=== PATIENT | female | born 1950 | race Caucasian/White ===

== ENCOUNTER 2020-07-18 17:27 | Inpatient (IN) | payer MEDICARE, BC ==
[~2020-07-18] VITALS: Ht 162.6 cm; Wt 96.2 kg
[~2020-07-18 17:27] MED LIST: adenosine 3mg/ml 2ml vial IV ONE; amiodarone 50MG/ML inj IV ONE; atropine 0.1 mg/ml 5ml syringe ONE; epiNEPHrine 0.1mg/ml 10ml syringe ONE; etomidate 2mg/ml inj. ONE; rocuronium 10mg/ml inj IV ONE
--- NOTE | 2020-07-18 18:00 | NUR ---
Received nurse:nurse harrison Pratt Rn, [facility] @ 3034. Pt initial visit r/t respiratory distress where uti reveal and treated w/ macrobid. Pt Covid + 07/14/2020 w/ increased difficulty breathing, placed on bipap. FC in place. NS bolus, albuterol neb tx and erythromcin administered. Abnormal labs: d-dimer: 22; Na: 23; K3.3. [employer] leaving now.
[2020-07-18 18:14] LABS: CLARITY,URINE SLIGHTLY CLOUDY (Clear); COLOR,URINE STRAW (Yellow); GLUCOSE, URINE 100 mg/dl (Neg); KETONES,URINE TRACE mg/dl (Neg); LEUKOCYTE ESTERASE ,URINE NEGATIVE (Neg); NITRITES, URINE NEGATIVE (Neg); OCCULT BLOOD,URINE MODERATE (Neg); PH,URINE 6.5 (4.8-8.0); PROTEIN,URINE 100 mg/dl (Neg); UROBILINOGEN,URINE 0.2 E.U/dL (0.2-1.0)
[2020-07-18 18:19] LABS: UA COLLECTION TYPE FOLEY CATH
[2020-07-18 18:21] LABS: SQUAMOUS EPITHELIAL CELL,UR FEW /LPF (FEW); TRANSITIONAL EPI CELLS,URINE FEW /HPF
[2020-07-18 18:22] LABS: RENAL CELLS, URINE MODERATE /HPF
[2020-07-18 18:23] LABS: BACTERIA,URINE NONE SEEN /HPF (Neg); RBC,URINE 0-2 /HPF (0-2); WBC,URINE 0-4 /HPF (0-4)
[2020-07-18 18:25] LABS: AMORPHOUS URATES 2+
[2020-07-18 18:43] LABS: BASOPHILS % (AUTO) 0.2 % (0-1); EOSINOPHILS % (AUTO) 0 % (0-6); HEMOGLOBIN 11.7 g/dl (12.0-16.0); LYMPHOCYTES # (AUTO) 0.3 X10'3 (1.1-4.8); LYMPHOCYTES % (AUTO) 2.7 % (21-51); MEAN CORPUSCULAR HEMOGLOBIN 29.9 PG (27.0-31.0); MEAN CORPUSCULAR HGB CONC 34.4 g/dL (33.0-36.5); MEAN CORPUSCULAR VOLUME 86.9 FL (78-98); MEAN PLATELET VOLUME 7.9 FL (7.4-10.4); MONOCYTES # (AUTO) 0.2 X10'3 (0-0.9); MONOCYTES % (AUTO) 1.8 % (2-12); NEUTROPHILS # (AUTO) 11.5 X10'3 (1.8-7.7); NEUTROPHILS % (AUTO) 95.3 % (42-75); PLATELET COUNT 293 X10'3 (140-440); RED BLOOD COUNT 3.91 X10'6 (4.20-5.60); RED CELL DISTRIBUTION WIDTH 13.3 % (11.5-14.5)
[2020-07-18] MEDS ORDERED: iohexol 350MG/ML 100ml bottle IV ONE (18:55)
[2020-07-18 18:56] LABS: ABG BASE EXCESS -0.2 mmol/L (-2.0-2.0); ABG HCO3 22.8 mmol/L (22.0-26.0); ABG OXYGEN SATURATION 94.4 % (94-97); ABG PCO2 (T) 32.2 mmHg (32.0-45.0); ABG PO2 (T) 71.4 mmHg (75.0-100.0); ALLEN'S TEST POSITIVE; FCOHb 0.6 % (0.0-3.9); FMetHb 0.1 % (0.0-1.5); FO2Hb 93.7 % (94-97); RESPIRATORY RATE 20 b/min
[2020-07-18 19:06] LABS: ALANINE AMINOTRANSFERASE 37 U/L (12-78); ALBUMIN 2.4 G/DL (3.4-5.0); ALBUMIN/GLOBULIN RATIO 0.6 (1.1-1.5); ALKALINE PHOSPHATASE 72 IU/L (46-116); ANION GAP 9 (8-16); ASPARTATE AMINO TRANSFERASE 48 U/L (10-37); BILIRUBIN,TOTAL 0.5 MG/DL (0.1-1.0); BLOOD UREA NITROGEN 12 MG/DL (7-18); CALCIUM 8.4 MG/DL (8.5-10.1); CHLORIDE 93 MMOL/L (99-107); CREATININE 0.86 MG/DL (0.40-0.90); GLUCOSE 180 MG/DL (70-104); POTASSIUM 3.8 MMOL/L (3.5-5.1); SODIUM 127 MMOL/L (135-145); TOTAL CARBON DIOXIDE 25.5 MMOL/L (24-32); TOTAL PROTEIN 6.7 G/DL (6.4-8.2); eGFR 66 ML/MIN
[2020-07-18 19:09] LABS: C-REACTIVE PROTEIN 23.82 MG/DL (0.0-0.5); LACTATE DEHYDROGENASE 761 U/L (81-234)
--- NOTE | 2020-07-18 19:15 | NUR ---
pt to CT, accompanied by RN, pt was placed on non rebreather 15L maintained sats of >92% entire procedure
[2020-07-18 19:22] LABS: NUCLEATED RED BLOOD CELLS 1 /100WBC (0-0); TOTAL CELLS COUNTED 100
[2020-07-18 19:25] LABS: BURR CELLS FEW; LARGE PLATELETS FEW; PLATELET ESTIMATE NORMAL; POLYCHROMASIA 1+; SPHEROCYTES FEW
[2020-07-18 19:26] LABS: ROULEAUX 1+
[2020-07-18] MEDS ORDERED: CefTRIAXone/D5W-Rocephin 1gm 50 ML IV ONE (19:35)
[2020-07-18] MEDS ORDERED: ONDA4TAB6 PO (20:07)
[2020-07-18] MEDS ORDERED: NITR100C6 PO (20:07)
--- NOTE | 2020-07-18 20:37 | NUR ---
Pt was able to tolerate 500ml of water. Pt denies nausea at this time. Pt denies pain at this time. Pt verbalized understanding of DC orders. Addendum: 07/18/20 at 2040 by STANISLAW Incorrect Pt.
--- NOTE | 2020-07-18 20:37 | NUR ---
Meg jerez daughter for contact info # [phone]
--- NOTE | 2020-07-18 22:22 | NUR ---
paged rt due to the fact patients spo2 will not go greater than 84%, paged salomón RT RT currently in room #4 fixing bi-pap leak
--- NOTE | 2020-07-18 22:49 | NUR ---
DR. GONZALEZ AWARE PATIENTS SPO2 NOT FGETTING ABOVE 84% ON 100% LELO RT DRAWING ABG NOW
[2020-07-18 23:00] LABS: ABG BASE EXCESS -0.9 mmol/L (-2.0-2.0); ABG HCO3 22.3 mmol/L (22.0-26.0); ABG OXYGEN SATURATION 90.8 % (94-97); ABG PCO2 (T) 33.4 mmHg (32.0-45.0); ABG PO2 (T) 60.8 mmHg (75.0-100.0); ALLEN'S TEST POSITIVE; FCOHb 0.7 % (0.0-3.9); FMetHb 0.1 % (0.0-1.5); FO2Hb 90.1 % (94-97); PATIENT TEMPERATURE 37.6; RESPIRATORY RATE 20 b/min; TOTAL HEMOGLOBIN 12.9 G/dl (12.0-16.0)
[2020-07-18] MEDS ORDERED: potassium Cl 10 mEq/100mL bag IV ONE (23:00)
--- NOTE | 2020-07-18 23:47 | NUR ---
balbir insurance office supervisor at bedside assessing patient
--- NOTE | 2020-07-18 23:52 | NUR ---
Irena oiler helper AWARE PATIENT IS ON 100%FIO2 WITH BI-PAP AND SPO2 WILL NO GET ABOVE 85% Irena CALLED Natividad CHUN TO ADJUST BI-PAP
[2020-07-19] VITALS (12 sets, daily range): BP systolic 84–112; BP diastolic 52–63
[2020-07-19] MEDS ORDERED: albuterol 2.5 MG/3 ML nebule NEB PRN (00:30)
[2020-07-19] MEDS ORDERED: potassium Cl 40MEQ/1/2NS 520ml 520 ML IV PRN ×2 (00:30)
[2020-07-19] MEDS ORDERED: potassium Cl 20 mEq SR tablet PO PRN ×2 (00:30)
[2020-07-19] MEDS ORDERED: acetaminophen 325mg tablet PO PRN (00:30)
[2020-07-19] MEDS ORDERED: acetaminophen 650mg rectal suppository RC PRN (00:30)
[2020-07-19 01:03] LABS: D-DIMER 11.86 MG/L FEU (0-0.50)
[2020-07-19] MEDS: normal saline 1000ml 1,000 ML IV SCH ×2 (01:15→12:48)
[2020-07-19] MEDS: enoxaparin 40mg/0.4ml syringe SUBCUT SCH ×3 (01:20→20:32)
[2020-07-19] MEDS ORDERED: insulin Lispro (HumaLOG) vial - multi-dose SQ SCH (01:35)
[2020-07-19] MEDS ORDERED: dextrose 50%-water 50ml dispensing syringe IV PRN ×2 (01:35)
[2020-07-19] MEDS ORDERED: glucagon, human recombinant 1mg kit SUBCUT PRN (01:35)
[2020-07-19] MEDS ORDERED: dextrose ORAL solution 15 GM/59 ML bottle PO PRN ×2 (01:35)
--- NOTE | 2020-07-19 01:53 | NUR ---
PATIENT IN BED EYES CLOSED BI-PAP ON RR EVEN UN LABORED, EASY TO AROUSE VERBALLY WILL CONTINUE TO MONITOR
--- NOTE | 2020-07-19 03:08 | NUR ---
ANSWERED PATIENTS CALL LIGHT PATIENT ASKED IF SHE WAS RECIEVING FLUIDS I VERBALIZED YES 80 AND HOUR OF NS. PATIENT SAID OK AND CLOSED EYES AND LIFTED COVERS UP, RR EVEN UN LABORED A0X4 GCS=15 WILL CONTINUE TO MONITOR
[2020-07-19] MEDS: ipratropium/albuterol 3ml nebule NEB SCH ×6 (04:00→23:39)
--- NOTE | 2020-07-19 05:06 | NUR ---
LELO RT IN ROOM ASSESSING PATIENT AND PATIENTS BI-PAP
[2020-07-19] MEDS ORDERED: albuterol 2.5 MG/3 ML nebule NEB ONE (05:25)
--- NOTE | 2020-07-19 07:29 | NUR ---
discussed patient's air hunger/agitation with Bipap mask with Dr. Gallardo over phone; order for 2 mg morphine IV q 2 h prn received.
[2020-07-19] MEDS: ondansetron/PF 4mg/2ml inj IV PRN (07:36)
[2020-07-19] MEDS: morphine 2 MG/ML inj. syringe IV PRN ×2 (07:37→10:57)
[2020-07-19] MEDS: CefTRIAXone 2gm/D5W 50ml BAG 50 ML IV SCH (07:49)
[2020-07-19] MEDS: pantoprazole 40 MG vial IV SCH (07:49)
[2020-07-19] MEDS: docusate sod 100mg capsule PO SCH ×2 (08:00→20:00)
[2020-07-19] MEDS ORDERED: dexamethasone 4mg/ml inj IV SCH (08:00)
[2020-07-19] MEDS ORDERED: azithromycin/NS 500mg/250ml 250 ML IV SCH (09:00)
--- NOTE | 2020-07-19 09:28 | NUR ---
Updated Sj on patient status. His #[phone].
[2020-07-19 10:05] LABS: BASOPHILS % (AUTO) 0.2 % (0-1); EOSINOPHILS % (AUTO) 0.2 % (0-6); HEMATOCRIT 36.7 % (35.0-45.0); HEMOGLOBIN 12.6 g/dl (12.0-16.0); LYMPHOCYTES # (AUTO) 0.3 X10'3 (1.1-4.8); LYMPHOCYTES % (AUTO) 2.8 % (21-51); MEAN CORPUSCULAR HEMOGLOBIN 30.6 PG (27.0-31.0); MEAN CORPUSCULAR HGB CONC 34.3 g/dL (33.0-36.5); MEAN CORPUSCULAR VOLUME 89.4 FL (78-98); MEAN PLATELET VOLUME 8.6 FL (7.4-10.4); MONOCYTES # (AUTO) 0.2 X10'3 (0-0.9); MONOCYTES % (AUTO) 2.4 % (2-12); NEUTROPHILS # (AUTO) 9.3 X10'3 (1.8-7.7); NEUTROPHILS % (AUTO) 94.4 % (42-75); PLATELET COUNT 303 X10'3 (140-440); RED BLOOD COUNT 4.11 X10'6 (4.20-5.60); RED CELL DISTRIBUTION WIDTH 13.7 % (11.5-14.5); WHITE BLOOD COUNT 9.8 X10'3 (4.5-11.0)
[2020-07-19 10:08] LABS: ALANINE AMINOTRANSFERASE 36 U/L (12-78); ALBUMIN 2.4 G/DL (3.4-5.0); ALBUMIN/GLOBULIN RATIO 0.5 (1.1-1.5); ALKALINE PHOSPHATASE 74 IU/L (46-116); ANION GAP 9 (8-16); ASPARTATE AMINO TRANSFERASE 49 U/L (10-37); BILIRUBIN,TOTAL 0.3 MG/DL (0.1-1.0); BLOOD UREA NITROGEN 12 MG/DL (7-18); BUN/CREATININE RATIO 14.5 (6.6-38.0); CHLORIDE 97 MMOL/L (99-107); CREATININE 0.83 MG/DL (0.40-0.90); GLUCOSE 166 MG/DL (70-104); MAGNESIUM 2.5 MG/DL (1.5-2.4); PHOSPHORUS 3.7 MG/DL (2.3-4.5); POTASSIUM 4.2 MMOL/L (3.5-5.1); SODIUM 130 MMOL/L (135-145); TOTAL CARBON DIOXIDE 24.5 MMOL/L (24-32); eGFR 68 ML/MIN
[2020-07-19 10:29] LABS: C-REACTIVE PROTEIN 27.62 MG/DL (0.0-0.5)
--- NOTE | 2020-07-19 11:04 | NUR ---
Dr. Gallardo in to see patient; order for PICC line; PICC RN paged.
[2020-07-19 11:33] LABS: PLATELET ESTIMATE NORMAL; ROULEAUX 1+; TOTAL CELLS COUNTED 100
[2020-07-19 11:34] LABS: BURR CELLS 2+; SPHEROCYTES 1+
[2020-07-19 11:36] LABS: LARGE PLATELETS FEW; TOXIC VACUOLATION 1+
[2020-07-19 12:31] LABS: ABG BASE EXCESS -0.4 mmol/L (-2.0-2.0); ABG HCO3 22.9 mmol/L (22.0-26.0); ABG OXYGEN SATURATION 92.8 % (94-97); ABG PCO2 (T) 33.8 mmHg (32.0-45.0); ABG PO2 (T) 65.7 mmHg (75.0-100.0); ALLEN'S TEST POSITIVE; FCOHb 0.3 % (0.0-3.9); FMetHb 0.2 % (0.0-1.5); FO2Hb 92.3 % (94-97); PATIENT TEMPERATURE 37.5; RESPIRATORY RATE 24 b/min; TOTAL HEMOGLOBIN 11.7 G/dl (12.0-16.0)
[2020-07-19 13:03] LABS: HEMOGLOBIN A1C 6.7 % (4.5-6.2)
[2020-07-19 13:43] LABS: D-DIMER 19.99 MG/L FEU (0-0.50); PARTIAL THROMBOPLASTIN TIME 29 SECONDS (22-32)
--- NOTE | 2020-07-19 14:43 | NUR ---
[facility] INFORMATION: REF: [id number] LOT: [id number] EXP: 07/21/2021
--- NOTE | 2020-07-19 18:30 | NUR ---
Pt in CICU room 2010, received report from Marley BONILLA, was given the opportunity to ask questions, will continue to monitor pt.
[2020-07-19] MEDS: insulin glargine (Lantus) pen - multi-dose SQ SCH (21:00)
[2020-07-19] MEDS: dexamethasone 4mg/ml inj IV SCH (23:21)
[2020-07-20] VITALS (24 sets, daily range): BP systolic 90–123; BP diastolic 53–77
[2020-07-20] MEDS: normal saline 1000ml 1,000 ML IV SCH ×2 (02:33→13:21)
[2020-07-20 03:15] LABS: BASOPHILS % (AUTO) 0.3 % (0-1); EOSINOPHILS % (AUTO) 0.1 % (0-6); HEMATOCRIT 32.2 % (35.0-45.0); HEMOGLOBIN 11.3 g/dl (12.0-16.0); LYMPHOCYTES # (AUTO) 0.3 X10'3 (1.1-4.8); LYMPHOCYTES % (AUTO) 3.5 % (21-51); MEAN CORPUSCULAR HEMOGLOBIN 31.1 PG (27.0-31.0); MEAN CORPUSCULAR HGB CONC 35.1 g/dL (33.0-36.5); MEAN CORPUSCULAR VOLUME 88.6 FL (78-98); MEAN PLATELET VOLUME 7.8 FL (7.4-10.4); MONOCYTES # (AUTO) 0.2 X10'3 (0-0.9); MONOCYTES % (AUTO) 3.2 % (2-12); NEUTROPHILS # (AUTO) 7.3 X10'3 (1.8-7.7); NEUTROPHILS % (AUTO) 92.9 % (42-75); PLATELET COUNT 337 X10'3 (140-440); RED BLOOD COUNT 3.63 X10'6 (4.20-5.60); RED CELL DISTRIBUTION WIDTH 13.1 % (11.5-14.5); WHITE BLOOD COUNT 7.9 X10'3 (4.5-11.0)
[2020-07-20 03:35] LABS: ALANINE AMINOTRANSFERASE 27 U/L (12-78); ALBUMIN/GLOBULIN RATIO 0.5 (1.1-1.5); ALKALINE PHOSPHATASE 69 IU/L (46-116); ANION GAP 7 (8-16); ASPARTATE AMINO TRANSFERASE 35 U/L (10-37); BILIRUBIN,TOTAL 0.3 MG/DL (0.1-1.0); BLOOD UREA NITROGEN 19 MG/DL (7-18); BUN/CREATININE RATIO 27.1 (6.6-38.0); C-REACTIVE PROTEIN 22.27 MG/DL (0.0-0.5); CALCIUM 8.3 MG/DL (8.5-10.1); CHLORIDE 105 MMOL/L (99-107); GLUCOSE 149 MG/DL (70-104); MAGNESIUM 2.5 MG/DL (1.5-2.4); PHOSPHORUS 2.9 MG/DL (2.3-4.5); POTASSIUM 4.1 MMOL/L (3.5-5.1); SODIUM 137 MMOL/L (135-145); TOTAL CARBON DIOXIDE 25.1 MMOL/L (24-32); TOTAL PROTEIN 6.3 G/DL (6.4-8.2); eGFR 83 ML/MIN
[2020-07-20 03:37] LABS: D-DIMER 18.98 MG/L FEU (0-0.50); PARTIAL THROMBOPLASTIN TIME 27 SECONDS (22-32)
[2020-07-20] MEDS: ipratropium/albuterol 3ml nebule NEB SCH ×5 (04:19→23:37)
[2020-07-20 04:34] LABS: ABG BASE EXCESS -4.9 mmol/L (-2.0-2.0); ABG HCO3 18.7 mmol/L (22.0-26.0); ABG OXYGEN SATURATION 93.4 % (94-97); ABG PCO2 (T) 30.1 mmHg (32.0-45.0); ABG PO2 (T) 66.6 mmHg (75.0-100.0); ALLEN'S TEST POSITIVE; FCOHb 0.1 % (0.0-3.9); FMetHb 0.1 % (0.0-1.5); FO2Hb 93.2 % (94-97); PATIENT TEMPERATURE 36.8; RESPIRATORY RATE 24 b/min
--- NOTE | 2020-07-20 05:24 | NUR ---
Pt tolerated the bipap well this shift, vitals remained stable, sandhu care provided, NS ran at 80/hr through R upper arm PICC, pt was alert and oriented and pleasant all shift, will cont to monitor.
--- NOTE | 2020-07-20 06:36 | NUR ---
Problems reprioritized. Patient report given, questions answered & plan of care reviewed with Anand BONILLA.
[2020-07-20] MEDS: docusate sod 100mg capsule PO SCH ×2 (08:00→20:00)
[2020-07-20] MEDS: dexamethasone 4mg/ml inj IV SCH ×2 (08:16→20:10)
[2020-07-20] MEDS: CefTRIAXone 2gm/D5W 50ml BAG 50 ML IV SCH (08:17)
[2020-07-20] MEDS: enoxaparin 40mg/0.4ml syringe SUBCUT SCH (08:17)
[2020-07-20] MEDS: pantoprazole 40 MG vial IV SCH (08:17)
[2020-07-20] MEDS ORDERED: NO HOME MEDS (10:43)
[2020-07-20] MEDS ORDERED: enoxaparin 100mg/ml syringe SUBCUT ONE (12:55)
--- NOTE | 2020-07-20 18:30 | NUR ---
Pt in CICU room 2010, report received from Anand BONILLA, had an opportunity to ask questions, assumed care, will cont to monitor.
[2020-07-20] MEDS: insulin glargine (Lantus) pen - multi-dose SQ SCH (21:00)
[2020-07-21] VITALS (24 sets, daily range): BP systolic 100–141; BP diastolic 47–97
[2020-07-21] MEDS ORDERED: lactulose 20gm/30ml cup PO PRN (00:30)
[2020-07-21 02:53] LABS: BASOPHILS % (AUTO) 0.1 % (0-1); EOSINOPHILS % (AUTO) 0.1 % (0-6); HEMATOCRIT 34.1 % (35.0-45.0); HEMOGLOBIN 11.4 g/dl (12.0-16.0); LYMPHOCYTES # (AUTO) 0.3 X10'3 (1.1-4.8); LYMPHOCYTES % (AUTO) 3.5 % (21-51); MEAN CORPUSCULAR HGB CONC 33.5 g/dL (33.0-36.5); MEAN CORPUSCULAR VOLUME 89.5 FL (78-98); MEAN PLATELET VOLUME 7.5 FL (7.4-10.4); MONOCYTES # (AUTO) 0.2 X10'3 (0-0.9); MONOCYTES % (AUTO) 2.9 % (2-12); NEUTROPHILS # (AUTO) 8.1 X10'3 (1.8-7.7); NEUTROPHILS % (AUTO) 93.4 % (42-75); PLATELET COUNT 328 X10'3 (140-440); RED BLOOD COUNT 3.81 X10'6 (4.20-5.60); RED CELL DISTRIBUTION WIDTH 13.5 % (11.5-14.5); WHITE BLOOD COUNT 8.6 X10'3 (4.5-11.0)
[2020-07-21 03:12] LABS: PLATELET ESTIMATE NORMAL; TOTAL CELLS COUNTED 100
[2020-07-21 03:15] LABS: PARTIAL THROMBOPLASTIN TIME 27 SECONDS (22-32)
[2020-07-21] MEDS: ipratropium/albuterol 3ml nebule NEB SCH ×6 (03:26→23:47)
[2020-07-21 03:45] LABS: ALANINE AMINOTRANSFERASE 30 U/L (12-78); ALBUMIN/GLOBULIN RATIO 0.5 (1.1-1.5); ALKALINE PHOSPHATASE 90 IU/L (46-116); ANION GAP 8 (8-16); ASPARTATE AMINO TRANSFERASE 35 U/L (10-37); BILIRUBIN,TOTAL 0.3 MG/DL (0.1-1.0); BLOOD UREA NITROGEN 25 MG/DL (7-18); BUN/CREATININE RATIO 32.1 (6.6-38.0); C-REACTIVE PROTEIN 12.37 MG/DL (0.0-0.5); CALCIUM 8.6 MG/DL (8.5-10.1); CHLORIDE 110 MMOL/L (99-107); CREATININE 0.78 MG/DL (0.40-0.90); GLUCOSE 157 MG/DL (70-104); MAGNESIUM 2.5 MG/DL (1.5-2.4); PHOSPHORUS 3.2 MG/DL (2.3-4.5); POTASSIUM 4.1 MMOL/L (3.5-5.1); SODIUM 144 MMOL/L (135-145); TOTAL CARBON DIOXIDE 26.1 MMOL/L (24-32); TOTAL PROTEIN 6.2 G/DL (6.4-8.2); eGFR 73 ML/MIN
[2020-07-21] MEDS: dexmedetomidine/D5W 100mL 100 ML IV SCH ×3 (04:59→18:48)
--- NOTE | 2020-07-21 06:21 | NUR ---
Report given to Darrell BONILLA, questions were answered, day shift RN assumed care.
[2020-07-21] MEDS: docusate sod 100mg capsule PO SCH ×2 (08:00→19:50)
[2020-07-21] MEDS: dexamethasone 4mg/ml inj IV SCH ×2 (08:24→19:50)
[2020-07-21] MEDS: pantoprazole 40 MG vial IV SCH (08:29)
--- NOTE | 2020-07-21 08:35 | NUR ---
SVN TREATMENT NOT ADMINISTERED. PER [facility] POLICY COVID+ PATIENTS SHOULD ONLY BE RECEIVING MDI'S. PATIENT IS CLEAR AND DIMINISHED THROUGHT OUT AND HAS BEEN SINCE ADMISSION. BREATHING TREATMENTS ARE NOT INDICATED AT THIS TIME. RT WILL CONTINUE MONITOR. Addendum: 07/21/20 at 0837 by Nicole Montero RT Amended: Links added.
[2020-07-21] MEDS: CefTRIAXone 2gm/D5W 50ml BAG 50 ML IV SCH (08:40)
[2020-07-21] MEDS: enoxaparin 100mg/ml syringe SUBCUT SCH ×2 (08:46→19:50)
[2020-07-21] MEDS ORDERED: furosemide 40mg/4ml inj IV ONE (10:40)
[2020-07-21] MEDS: normal saline 1000ml 1,000 ML IV SCH (14:55)
--- NOTE | 2020-07-21 16:24 | NUR ---
Had a long conversation with Kerry, patients family. Answered all their questions within my scope of practice. Will give leave a note for the back tender to call the family to discuss plan of care and answer any questions that require a physician.
--- NOTE | 2020-07-21 18:37 | NUR ---
sbar report given to night nurse, questions answered, EMAR reviewed.
--- NOTE | 2020-07-21 18:37 | NUR ---
rounded with Dr. Boby Gallardo at AM, EMAR reviewed and assessment given. Orders entered by physician.
--- NOTE | 2020-07-21 18:38 | NUR ---
Patient in room CICU 2009. I have received report from IRENE Ramírez and had the opportunity to ask questions and assume patient care. Patient resting comfortably on Bipap, she is A&Ox3 and GEOVANNI, I will continue to monitor.
[2020-07-21] MEDS: lactobacillus rhamnosus 10,000 MMU CELLS/CAPSULE PO SCH (19:50)
[2020-07-21] MEDS: insulin glargine (Lantus) pen - multi-dose SQ SCH (20:02)
[2020-07-22] VITALS (24 sets, daily range): BP systolic 103–153; BP diastolic 46–99
[2020-07-22] MEDS: dexmedetomidine/D5W 100mL 100 ML IV SCH ×3 (01:47→22:11)
[2020-07-22] MEDS: ipratropium/albuterol 3ml nebule NEB SCH ×6 (03:37→23:04)
[2020-07-22 03:43] LABS: BASOPHILS % (AUTO) 0.2 % (0-1); EOSINOPHILS % (AUTO) 0.2 % (0-6); HEMATOCRIT 33.2 % (35.0-45.0); HEMOGLOBIN 11.4 g/dl (12.0-16.0); LYMPHOCYTES # (AUTO) 0.3 X10'3 (1.1-4.8); LYMPHOCYTES % (AUTO) 3.7 % (21-51); MEAN CORPUSCULAR HEMOGLOBIN 30.5 PG (27.0-31.0); MEAN CORPUSCULAR HGB CONC 34.2 g/dL (33.0-36.5); MEAN CORPUSCULAR VOLUME 89.1 FL (78-98); MEAN PLATELET VOLUME 7.5 FL (7.4-10.4); MONOCYTES # (AUTO) 0.2 X10'3 (0-0.9); MONOCYTES % (AUTO) 2.4 % (2-12); NEUTROPHILS # (AUTO) 8.3 X10'3 (1.8-7.7); NEUTROPHILS % (AUTO) 93.5 % (42-75); PLATELET COUNT 302 X10'3 (140-440); RED BLOOD COUNT 3.72 X10'6 (4.20-5.60); RED CELL DISTRIBUTION WIDTH 13.3 % (11.5-14.5); WHITE BLOOD COUNT 8.9 X10'3 (4.5-11.0)
[2020-07-22 03:58] LABS: ANION GAP 9 (8-16); BILIRUBIN,TOTAL 0.3 MG/DL (0.1-1.0); BLOOD UREA NITROGEN 30 MG/DL (7-18); CALCIUM 7.8 MG/DL (8.5-10.1); CHLORIDE 112 MMOL/L (99-107); CREATININE 0.79 MG/DL (0.40-0.90); GLUCOSE 152 MG/DL (70-104); MAGNESIUM 2.3 MG/DL (1.5-2.4); PHOSPHORUS 3.6 MG/DL (2.3-4.5); POTASSIUM 3.3 MMOL/L (3.5-5.1); SODIUM 147 MMOL/L (135-145); TOTAL CARBON DIOXIDE 25.6 MMOL/L (24-32); eGFR 72 ML/MIN
[2020-07-22 03:59] LABS: ALANINE AMINOTRANSFERASE 27 U/L (12-78); ALBUMIN 1.9 G/DL (3.4-5.0); ALBUMIN/GLOBULIN RATIO 0.5 (1.1-1.5); ALKALINE PHOSPHATASE 90 IU/L (46-116); ASPARTATE AMINO TRANSFERASE 37 U/L (10-37); C-REACTIVE PROTEIN 6.17 MG/DL (0.0-0.5); TOTAL PROTEIN 5.8 G/DL (6.4-8.2)
[2020-07-22 04:03] LABS: D-DIMER 27.24 MG/L FEU (0-0.50); PARTIAL THROMBOPLASTIN TIME 30 SECONDS (22-32)
[2020-07-22] MEDS: normal saline 1000ml 1,000 ML IV SCH ×2 (05:39→07:06)
--- NOTE | 2020-07-22 06:31 | NUR ---
Problems reprioritized. Patient report given, questions answered & plan of care reviewed with IRENE Latham.
[2020-07-22] MEDS: CefTRIAXone 2gm/D5W 50ml BAG 50 ML IV SCH (07:05)
[2020-07-22] MEDS: pantoprazole 40 MG vial IV SCH (08:00)
[2020-07-22] MEDS: lactobacillus rhamnosus 10,000 MMU CELLS/CAPSULE PO SCH ×2 (08:00→21:24)
[2020-07-22] MEDS: dexamethasone 4mg/ml inj IV SCH ×2 (08:00→21:24)
[2020-07-22] MEDS: enoxaparin 100mg/ml syringe SUBCUT SCH ×2 (08:00→21:24)
[2020-07-22] MEDS: docusate sod 100mg capsule PO SCH ×2 (08:00→20:00)
--- NOTE | 2020-07-22 09:15 | NUR ---
Positive BC reported to Dr Sanchez
--- NOTE | 2020-07-22 11:01 | NUR ---
Initial: Pt admit DX COVID-19 and acute respiratory failure per MD note. Remains bipap dependent quickly desaturates off bipap per EMR and NPO no nutrition day 3 this admit. Pt would benefit from corpak for nutrition needs this admit given DX and respiratory status; TF recs below in case to start EN. CRP down to 6/17 from initial 27.62. No BM yet but is receiving routine colace; nutrition likely to influence GI motility. Will continue to monitor. Rec: 1. corpak for nutrition needs IF MD agreeable given bipap dependence; day 3 no nutrition 2. IF TF; Vital AF at 65ml/hr goal; to provide 1560ml volume, 1872kcals, 1264ml free water, and 117g protein. 3. IF TF; additional water flush 200ml Q4 4. IF TF; PALB Q/Th; daily wts 5. routine bowel care Addendum: 07/22/20 at [address] Amended: Links added.
--- NOTE | 2020-07-22 11:25 | NUR ---
RN TC: Pt to try transition from bipap to high malathi tower vs normal high malathi and is able to take off bipap and gulp down water w/ no swallowing issues per RN. Okay to advance PO diet per MD; RD recommends Easy to Chew diet since pt has teeth but will ease eating ability; to send chop meats as well. RN requests appropriate ONS; RD recommends ensure enlive TIDWM since more likely to tolerate liquid kcals at this time. Dietary notified. IF pt tolerates PO diet w/ adequate intake of meals/ONS then certainly no need for nutrition support. Will continue to monitor. Rec: 1. continue Easy to Chew/regular diet as medically indicated; chopped meats 2. ensure enlive TIDWM; encourage PO 3. IF pt unable to tolerate PO meals/ONS or prolonged poor PO consider supplemental nutrition support given catabolic state 3. IF TF; Vital AF at 65ml/hr goal; to provide 1560ml volume, 1872kcals, 1264ml free water, and 117g protein. additional water flush 200ml Q4 4. routine bowel care 5. wts per rx Addendum: 07/22/20 at [address] Amended: Links added.
[2020-07-22] MEDS: lactose-reduced food (Ensure Enlive) - 237ml bottle PO SCH ×2 (13:46→21:00)
[2020-07-22] MEDS: cholecalciferol (vitamin D) 400 unit tablet PO SCH (14:10)
[2020-07-22] MEDS: zinc sulfate 220mg capsule PO SCH (14:10)
--- NOTE | 2020-07-22 14:43 | NUR ---
F/u 07/22: IRENE TC: Pt unable to tolerate solid foods at this time but is drinking ensures for sole nutrition intake; RN requests RD recs regarding diet/ONS. RD recommends full liquid diet w/ ensure enlive TIDWM and additional ensures to be sent BIDBD temporarily until PO intake solidifies. IF pt only drinks 5 ensures/day would be meeting bare minimum kcal as well as protein needs. Dietary notified. Rec: 1. continue full liquid diet; encourage PO 2. ensure enlive TIDWM as well as BIDBD temporarily until PO intake solidifies given respiratory status; meets minimum kcal/protein needs 3. advance diet as medically indicated to Easy to Chew/regular 4. IF pt unable to tolerate PO meals/ONS or prolonged poor PO consider supplemental nutrition support given catabolic state 5. IF TF; Vital AF at 65ml/hr goal; to provide 1560ml volume, 1872kcals, 1264ml free water, and 117g protein. additional water flush 200ml Q4 6. routine bowel care 7. wts per rx Addendum: 07/22/20 at [address] Amended: Links added.
[2020-07-22] MEDS: insulin glargine (Lantus) pen - multi-dose SQ SCH (21:00)
[2020-07-22] MEDS: Melatonin 3mg tablet PO SCH (21:24)
[2020-07-23] VITALS (26 sets, daily range): BP systolic 102–160; BP diastolic 49–96
[2020-07-23] MEDS: ipratropium/albuterol 3ml nebule NEB SCH ×4 (02:53→23:29)
[2020-07-23 02:57] LABS: MEAN PLATELET VOLUME 7.5 FL (7.4-10.4); WHITE BLOOD COUNT 11.7 X10'3 (4.5-11.0)
[2020-07-23 02:59] LABS: HEMATOCRIT 36.4 % (35.0-45.0); HEMOGLOBIN 12.2 g/dl (12.0-16.0); MEAN CORPUSCULAR HGB CONC 33.6 g/dL (33.0-36.5); MEAN CORPUSCULAR VOLUME 89.3 FL (78-98); PLATELET COUNT 297 X10'3 (140-440); RED BLOOD COUNT 4.08 X10'6 (4.20-5.60); RED CELL DISTRIBUTION WIDTH 13.3 % (11.5-14.5)
[2020-07-23 03:12] LABS: D-DIMER 33.19 MG/L FEU (0-0.50); PARTIAL THROMBOPLASTIN TIME 29 SECONDS (22-32)
[2020-07-23 03:20] LABS: ALANINE AMINOTRANSFERASE 59 U/L (12-78); ALBUMIN 2.2 G/DL (3.4-5.0); ALBUMIN/GLOBULIN RATIO 0.5 (1.1-1.5); ALKALINE PHOSPHATASE 135 IU/L (46-116); ANION GAP 9 (8-16); ASPARTATE AMINO TRANSFERASE 108 U/L (10-37); BILIRUBIN,TOTAL 0.4 MG/DL (0.1-1.0); BLOOD UREA NITROGEN 25 MG/DL (7-18); BUN/CREATININE RATIO 30.5 (6.6-38.0); C-REACTIVE PROTEIN 5.28 MG/DL (0.0-0.5); CALCIUM 8.5 MG/DL (8.5-10.1); CHLORIDE 107 MMOL/L (99-107); CREATININE 0.82 MG/DL (0.40-0.90); GLUCOSE 196 MG/DL (70-104); MAGNESIUM 2.2 MG/DL (1.5-2.4); PHOSPHORUS 2.6 MG/DL (2.3-4.5); POTASSIUM 3.8 MMOL/L (3.5-5.1); SODIUM 143 MMOL/L (135-145); TOTAL CARBON DIOXIDE 27.4 MMOL/L (24-32); TOTAL PROTEIN 6.3 G/DL (6.4-8.2); eGFR 69 ML/MIN
[2020-07-23 05:10] LABS: ANISOCYTOSIS 1+; NUCLEATED RED BLOOD CELLS 2 /100WBC (0-0); PLATELET ESTIMATE NORMAL; TOTAL CELLS COUNTED 100
[2020-07-23] MEDS: zinc sulfate 220mg capsule PO SCH (08:00)
[2020-07-23] MEDS: docusate sod 100mg capsule PO SCH ×2 (08:00→20:00)
[2020-07-23] MEDS: pantoprazole 40 MG vial IV SCH (08:01)
[2020-07-23] MEDS: CefTRIAXone 2gm/D5W 50ml BAG 50 ML IV SCH (08:01)
[2020-07-23] MEDS: dexamethasone 4mg/ml inj IV SCH ×2 (08:01→19:51)
[2020-07-23] MEDS: lactobacillus rhamnosus 10,000 MMU CELLS/CAPSULE PO SCH ×2 (08:02→19:50)
[2020-07-23] MEDS: cholecalciferol (vitamin D) 400 unit tablet PO SCH (08:02)
[2020-07-23] MEDS: lactose-reduced food (Ensure Enlive) - 237ml bottle PO SCH ×2 (08:02→18:00)
[2020-07-23] MEDS: acetaminophen 325mg tablet PO PRN ×2 (08:07→15:42)
[2020-07-23] MEDS: enoxaparin 100mg/ml syringe SUBCUT SCH ×2 (08:07→19:50)
[2020-07-23] MEDS ORDERED: furosemide 40mg/4ml inj IV ONE (10:05)
[2020-07-23] MEDS ORDERED: LORazepam 2 mg/ml vial IV ONE (10:05)
--- NOTE | 2020-07-23 10:55 | NUR ---
unable to scan medications with scanner. it is malfunctioning.
[2020-07-23] MEDS ORDERED: LORazepam 0.5 MG tablet PO PRN (11:00)
--- NOTE | 2020-07-23 11:04 | NUR ---
rounded with carpenter repair on board today, SBAR given, EMAR reviewed. Aware of patients high RR rate between 25-35 but neurological at baseline, sating above 90%, and denying exhaustion or air hunger. orders given and entered into system.
--- NOTE | 2020-07-23 18:33 | NUR ---
SBAR report given to Katherine BONILLA, questions answered, EMAR reviewed.
--- NOTE | 2020-07-23 18:36 | NUR ---
Updated patient family about patient condition , labs, and plan of care x2 today. All questions answered were within my scope of practice. Patient family insist to ask for medical advice, but I have informed them multiple times that I can not give such a thing as a nurse.
[2020-07-23] MEDS: dexmedetomidine/D5W 100mL 100 ML IV SCH (19:23)
[2020-07-23] MEDS: Melatonin 3mg tablet PO SCH (19:50)
[2020-07-23] MEDS: normal saline 1000ml 1,000 ML IV SCH (19:52)
[2020-07-23] MEDS: insulin glargine (Lantus) pen - multi-dose SQ SCH (21:00)
--- NOTE | 2020-07-23 22:12 | NUR ---
Patient with current oxygen saturation 85-89% with current Bipap settings of 20/14 on 100% FIO2. Patient has not been able to be transitioned to high flow this evening. Respiratory notified and bedside. CXR ordered and ABG ordered. Patient oxygen saturation will come up if in room and coaching patient to take deep breaths, but once leave patient desats again. RN will continue to monitor. Addendum: 07/23/20 at 2255 by Katherine Garcia RN Patient daughter called and wanted an update. Seemed upset because oxygen saturation low and was not low during the day. Tried to explain to her she is sleeping and comes up when she is stimulated. Wanted to know oxygen saturation for every hour during the day. RN informed her of patient Bipap settings, FIO2, current oxygen saturation of 86%. RN also called YAZMIN Cisco and notified of patient situation. Orders for another ABG in a couple hours and breathing treatment if needed. Informed patient is not symptomatic at this time. Currently patient oxygen saturation is 85% and seems to be maintaining at that level. Addendum: 07/24/20 at 0615 by Katherine Garcia RN When patient lays on back oxygen saturation 85-89%; however, when patient is tilted to right or on right side oxygen saturation 92-96%. Patient has not been symptomatic, has been alert and oriented x 4 all night.
[2020-07-23 22:30] LABS: ABG HCO3 24.6 mmol/L (22.0-26.0); ABG OXYGEN SATURATION 89.3 % (94-97); ABG PCO2 (T) 32.2 mmHg (32.0-45.0); ABG PO2 (T) 53.5 mmHg (75.0-100.0); ALLEN'S TEST POSITIVE; FCOHb 0.7 % (0.0-3.9); FMetHb 0.2 % (0.0-1.5); FO2Hb 88.5 % (94-97); PATIENT TEMPERATURE 36.7; RESPIRATORY RATE 22 b/min; TOTAL HEMOGLOBIN 13.5 G/dl (12.0-16.0)
[2020-07-24] VITALS (21 sets, daily range): BP systolic 96–140; BP diastolic 56–83
[2020-07-24 00:42] LABS: ABG BASE EXCESS 3.1 mmol/L (-2.0-2.0); ABG HCO3 25.9 mmol/L (22.0-26.0); ABG OXYGEN SATURATION 92.6 % (94-97); ABG PCO2 (T) 35.2 mmHg (32.0-45.0); ABG PO2 (T) 66.9 mmHg (75.0-100.0); ALLEN'S TEST POSITIVE; FCOHb 0.2 % (0.0-3.9); FMetHb 0.3 % (0.0-1.5); FO2Hb 92.1 % (94-97); PATIENT TEMPERATURE 37.9; RESPIRATORY RATE 22 b/min; TOTAL HEMOGLOBIN 13.4 G/dl (12.0-16.0)
[2020-07-24 02:51] LABS: HEMOGLOBIN 12.1 g/dl (12.0-16.0); MEAN CORPUSCULAR HGB CONC 33.4 g/dL (33.0-36.5); RED BLOOD COUNT 4.07 X10'6 (4.20-5.60)
[2020-07-24 02:53] LABS: HEMATOCRIT 36.2 % (35.0-45.0); MEAN CORPUSCULAR HEMOGLOBIN 29.7 PG (27.0-31.0); MEAN PLATELET VOLUME 7.6 FL (7.4-10.4); PLATELET COUNT 236 X10'3 (140-440); RED CELL DISTRIBUTION WIDTH 13.5 % (11.5-14.5)
[2020-07-24 02:59] LABS: ALANINE AMINOTRANSFERASE 72 U/L (12-78); ALBUMIN/GLOBULIN RATIO 0.5 (1.1-1.5); ALKALINE PHOSPHATASE 125 IU/L (46-116); ANION GAP 6 (8-16); ASPARTATE AMINO TRANSFERASE 89 U/L (10-37); BILIRUBIN,TOTAL 0.3 MG/DL (0.1-1.0); BLOOD UREA NITROGEN 23 MG/DL (7-18); BUN/CREATININE RATIO 34.8 (6.6-38.0); CALCIUM 8.1 MG/DL (8.5-10.1); CHLORIDE 106 MMOL/L (99-107); CREATININE 0.66 MG/DL (0.40-0.90); GLUCOSE 159 MG/DL (70-104); MAGNESIUM 2.2 MG/DL (1.5-2.4); PARTIAL THROMBOPLASTIN TIME 32 SECONDS (22-32); PHOSPHORUS 3.7 MG/DL (2.3-4.5); SODIUM 142 MMOL/L (135-145); TOTAL CARBON DIOXIDE 29.6 MMOL/L (24-32); TOTAL PROTEIN 6.2 G/DL (6.4-8.2); eGFR 89 ML/MIN
[2020-07-24] MEDS: ipratropium/albuterol 3ml nebule NEB SCH ×2 (03:24→07:17)
[2020-07-24 03:39] LABS: ANISOCYTOSIS 1+; PLATELET ESTIMATE NORMAL; TOTAL CELLS COUNTED 100
[2020-07-24] MEDS: dexmedetomidine/D5W 100mL 100 ML IV SCH ×2 (05:04→10:40)
--- NOTE | 2020-07-24 06:30 | NUR ---
Patient in room CICU 2009. I have received report from donald Murphy RN and had the opportunity to ask questions and assume patient care.
[2020-07-24] MEDS ORDERED: ALBUTEROL INHALER 1 PUFF/90 MCG INHALER IH PRN (07:25)
[2020-07-24] MEDS: lactose-reduced food (Ensure Enlive) - 237ml bottle PO SCH ×3 (07:30→18:00)
[2020-07-24] MEDS: docusate sod 100mg capsule PO SCH ×2 (08:00→19:56)
[2020-07-24] MEDS: lactobacillus rhamnosus 10,000 MMU CELLS/CAPSULE PO SCH ×2 (08:00→19:56)
[2020-07-24] MEDS: CefTRIAXone 2gm/D5W 50ml BAG 50 ML IV SCH (10:39)
[2020-07-24] MEDS: pantoprazole 40 MG vial IV SCH (10:40)
[2020-07-24] MEDS: methylPREDNISolone sod succ 125mg/2ml vial IV SCH ×2 (10:40→18:07)
[2020-07-24] MEDS: enoxaparin 100mg/ml syringe SUBCUT SCH ×2 (10:41→19:56)
--- NOTE | 2020-07-24 11:39 | NUR ---
TPN Consult: Pt insignificant ONS/diet PO at this time and desaturates too quickly off bipap even if receiving high malathi to place corpak at this time per RN. TPN via PICC to start today per parking regulation enforcement officer; recs below. Pt now NPO given poor PO hx and PN for sole nutrition needs; dietary notified. CRP up to 9.3 from 5.28 prior. IF pt becomes stable enough for corpak placement would benefit from EN given function gut and to promote gut integrity as medically indicated. LBM 1/2. Will monitor for TPN tolerance and signs of refeeding given poor nutrition status past 5 days since admit. Rec: 1. TPN via PICC line per parking regulation enforcement officer using 3:1 Clinimix E 5/20 w/ 100ml 20% intralipids at 95ml/hr goal. To provide 2280ml fluid, 434g DEX(3.15mg/kg/min), 109g AA, and 2132 total kcals. Initiate at 30ml/hr and if tolerated advance Q12 to goal. 2. PALB/TG Q /; daily wts 3. monitor for TPN tolerance and signs of refeeding syndrome 4. EN if respiratory status improves and able to place corpak given functional gut as medically indicated 5. IF TF; Vital AF at 65ml/hr goal; to provide 1560ml volume, 1872kcals, 1264ml free water, and 117g protein. additional water flush 200ml Q4 6. advance diet as medically indicated to Easy to Chew/regular 7. once PO diet; ensure enlive TIDWM Addendum: 07/24/20 at [address] Amended: Links added.
[2020-07-24] MEDS ORDERED: Dextrose 10%-water IV solution 1,000 ML IV PRN (11:55)
[2020-07-24] MEDS ORDERED: magnesium 4gm in 100ml NS 100 ML IV PRN (11:55)
[2020-07-24] MEDS ORDERED: magnesium Cl slow-release 64mg tablet PO PRN (11:55)
[2020-07-24] MEDS ORDERED: magnesium 2GM in 50ml NS 50 ML IV PRN (11:55)
[2020-07-24] MEDS: cholecalciferol (vitamin D) 400 unit tablet PO SCH (13:27)
[2020-07-24] MEDS: zinc sulfate 220mg capsule PO SCH (13:27)
--- NOTE | 2020-07-24 17:48 | NUR ---
patient reports excellent results since precedex started, much less general anxiety, able to rest/relax. Noted decreased respiratory rate since on Precedex with rate of 24-28 and states her work of breathing seems easier. Proned for several hours with O2 sats improved and patient tolerated well. Updated daughter and on condition.
[2020-07-24 17:59] LABS: ALANINE AMINOTRANSFERASE 67 U/L (12-78); ALBUMIN 1.9 G/DL (3.4-5.0); ALBUMIN/GLOBULIN RATIO 0.4 (1.1-1.5); ALKALINE PHOSPHATASE 133 IU/L (46-116); ANION GAP 6 (8-16); ASPARTATE AMINO TRANSFERASE 71 U/L (10-37); BILIRUBIN,TOTAL 0.3 MG/DL (0.1-1.0); BLOOD UREA NITROGEN 25 MG/DL (7-18); BUN/CREATININE RATIO 37.9 (6.6-38.0); CALCIUM 8.1 MG/DL (8.5-10.1); CHLORIDE 106 MMOL/L (99-107); CREATININE 0.66 MG/DL (0.40-0.90); GLUCOSE 171 MG/DL (70-104); MAGNESIUM 2.1 MG/DL (1.5-2.4); PHOSPHORUS 3.3 MG/DL (2.3-4.5); POTASSIUM 4.3 MMOL/L (3.5-5.1); PREALBUMIN 15.5 MG/DL (19-36); SODIUM 141 MMOL/L (135-145); TOTAL CARBON DIOXIDE 29.4 MMOL/L (24-32); TOTAL PROTEIN 6.2 G/DL (6.4-8.2); TRIGLYCERIDES 79 MG/DL (20-135); eGFR 89 ML/MIN
--- NOTE | 2020-07-24 18:27 | NUR ---
Patient in room CICU 2009. I have received report from IRENE Roach and had the opportunity to ask questions and assume patient care.
[2020-07-24] MEDS: Melatonin 3mg tablet PO SCH (20:00)
[2020-07-24] MEDS ORDERED: [UNRECOGNIZED DRUG - OTHER] IV SCH ×4 (21:00)
[2020-07-24] MEDS: insulin glargine (Lantus) pen - multi-dose SQ SCH (21:00)
[2020-07-24] MEDS ORDERED: SELENIUM IV SCH ×4 (21:00)
[2020-07-24] MEDS ORDERED: ZINC IV SCH ×4 (21:00)
[2020-07-24] MEDS ORDERED: COPPER IV SCH ×4 (21:00)
[2020-07-24] MEDS ORDERED: MANGANESE IV SCH ×4 (21:00)
[2020-07-24] MEDS ORDERED: FAT EMULSION 20% IV SCH ×4 (21:00)
[2020-07-25] VITALS (23 sets, daily range): BP systolic 99–150; BP diastolic 53–90
[2020-07-25] MEDS: methylPREDNISolone sod succ 125mg/2ml vial IV SCH ×3 (00:34→16:50)
[2020-07-25] MEDS: dexmedetomidine/D5W 100mL 100 ML IV SCH ×3 (02:35→23:23)
[2020-07-25 02:55] LABS: BASOPHILS % (AUTO) 0.1 % (0-1); EOSINOPHILS % (AUTO) 0.2 % (0-6); HEMOGLOBIN 12.4 g/dl (12.0-16.0); LYMPHOCYTES # (AUTO) 0.2 X10'3 (1.1-4.8); LYMPHOCYTES % (AUTO) 1.9 % (21-51); MEAN CORPUSCULAR HEMOGLOBIN 29.8 PG (27.0-31.0); MEAN CORPUSCULAR HGB CONC 33.5 g/dL (33.0-36.5); MEAN PLATELET VOLUME 7.5 FL (7.4-10.4); MONOCYTES # (AUTO) 0.1 X10'3 (0-0.9); MONOCYTES % (AUTO) 1.5 % (2-12); NEUTROPHILS # (AUTO) 9.5 X10'3 (1.8-7.7); NEUTROPHILS % (AUTO) 96.3 % (42-75); PLATELET COUNT 222 X10'3 (140-440); RED BLOOD COUNT 4.16 X10'6 (4.20-5.60); RED CELL DISTRIBUTION WIDTH 13.4 % (11.5-14.5); WHITE BLOOD COUNT 9.9 X10'3 (4.5-11.0)
[2020-07-25] MEDS: insulin regular, human U-100 3ml vial - multi-dose SQ SCH ×2 (03:02→22:19)
[2020-07-25 03:12] LABS: ALANINE AMINOTRANSFERASE 63 U/L (12-78); ALBUMIN/GLOBULIN RATIO 0.5 (1.1-1.5); ALKALINE PHOSPHATASE 134 IU/L (46-116); ANION GAP 7 (8-16); ASPARTATE AMINO TRANSFERASE 59 U/L (10-37); BILIRUBIN,TOTAL 0.3 MG/DL (0.1-1.0); BLOOD UREA NITROGEN 26 MG/DL (7-18); BUN/CREATININE RATIO 35.6 (6.6-38.0); C-REACTIVE PROTEIN 9.48 MG/DL (0.0-0.5); CALCIUM 8.5 MG/DL (8.5-10.1); CHLORIDE 107 MMOL/L (99-107); CREATININE 0.73 MG/DL (0.40-0.90); GLUCOSE 187 MG/DL (70-104); MAGNESIUM 2.1 MG/DL (1.5-2.4); PHOSPHORUS 3.7 MG/DL (2.3-4.5); PREALBUMIN 15.6 MG/DL (19-36); SODIUM 142 MMOL/L (135-145); TOTAL CARBON DIOXIDE 28.1 MMOL/L (24-32); TOTAL PROTEIN 6.4 G/DL (6.4-8.2); TRIGLYCERIDES 112 MG/DL (20-135); eGFR 79 ML/MIN
[2020-07-25 03:14] LABS: D-DIMER 26.77 MG/L FEU (0-0.50); PARTIAL THROMBOPLASTIN TIME 31 SECONDS (22-32)
[2020-07-25 03:34] LABS: ANISOCYTOSIS 1+; PLATELET ESTIMATE NORMAL; TOTAL CELLS COUNTED 100
--- NOTE | 2020-07-25 06:00 | NUR ---
Patient was able to tolerate proning from 8108-5177 with oxygen saturation in the low to mid 90's. Patient was then transitioned to her right side then to her back per patients request. Patient did not tolerate Precedex even at a lower rate, heart rate decreased to the lower 50's. Patient also tends to be bradycardic while sleeping without Precedex drip. Patient appears to be in good spirits this morning and states "I feel like I slept. I feel a bit better!". Patient educated on deep breathing and coughing.
--- NOTE | 2020-07-25 06:18 | NUR ---
Problems reprioritized. Patient report given, questions answered & plan of care reviewed with IRENE Roach.
[2020-07-25] MEDS: lactose-reduced food (Ensure Enlive) - 237ml bottle PO SCH ×3 (08:00→18:50)
[2020-07-25] MEDS ORDERED: furosemide 40mg/4ml inj IV ONE (09:35)
[2020-07-25] MEDS ORDERED: morphine 2 MG/ML inj. syringe IV PRN (09:35)
[2020-07-25] MEDS: pantoprazole 40 MG vial IV SCH (09:48)
[2020-07-25] MEDS: lactobacillus rhamnosus 10,000 MMU CELLS/CAPSULE PO SCH ×2 (09:49→21:42)
[2020-07-25] MEDS: CefTRIAXone 2gm/D5W 50ml BAG 50 ML IV SCH (09:49)
[2020-07-25] MEDS: zinc sulfate 220mg capsule PO SCH (09:49)
[2020-07-25] MEDS: docusate sod 100mg capsule PO SCH ×2 (09:49→21:43)
[2020-07-25] MEDS: cholecalciferol (vitamin D) 400 unit tablet PO SCH (09:49)
[2020-07-25] MEDS: enoxaparin 100mg/ml syringe SUBCUT SCH ×2 (09:50→21:42)
[2020-07-25] MEDS: ZINC IV SCH ×4 (16:54)
[2020-07-25] MEDS: MANGANESE IV SCH ×4 (16:54)
[2020-07-25] MEDS: SELENIUM IV SCH ×4 (16:54)
[2020-07-25] MEDS: [UNRECOGNIZED DRUG - OTHER] IV SCH ×4 (16:54)
[2020-07-25] MEDS: COPPER IV SCH ×4 (16:54)
[2020-07-25] MEDS: FAT EMULSION 20% IV SCH ×4 (16:54)
--- NOTE | 2020-07-25 18:30 | NUR ---
Patient in room CICU 2009. I have received report from Marley BONILLA and had the opportunity to ask questions and assume patient care.
[2020-07-25] MEDS: Melatonin 3mg tablet PO SCH (21:42)
[2020-07-25] MEDS: insulin glargine (Lantus) pen - multi-dose SQ SCH (22:21)
[2020-07-26] VITALS (26 sets, daily range): BP systolic 90–144; BP diastolic 56–95
[2020-07-26] MEDS: methylPREDNISolone sod succ 125mg/2ml vial IV SCH ×4 (00:30→23:26)
[2020-07-26] MEDS: acetaminophen 325mg tablet PO PRN ×3 (00:33→14:07)
[2020-07-26] MEDS: insulin regular, human U-100 3ml vial - multi-dose SQ SCH ×3 (03:19→20:45)
[2020-07-26 03:28] LABS: EOSINOPHILS # (AUTO) 0.1 X10'3 (0-0.9); EOSINOPHILS % (AUTO) 0.9 % (0-6); HEMOGLOBIN 12.1 g/dl (12.0-16.0); LYMPHOCYTES # (AUTO) 0.2 X10'3 (1.1-4.8); MEAN PLATELET VOLUME 7.8 FL (7.4-10.4); NEUTROPHILS % (AUTO) 96.9 % (42-75)
[2020-07-26 03:30] LABS: BASOPHILS # (AUTO) 0.1 X10'3 (0-0.2); BASOPHILS % (AUTO) 0.6 % (0-1); HEMATOCRIT 35.8 % (35.0-45.0); LYMPHOCYTES % (AUTO) 1.3 % (21-51); MEAN CORPUSCULAR HEMOGLOBIN 29.9 PG (27.0-31.0); MEAN CORPUSCULAR HGB CONC 33.7 g/dL (33.0-36.5); MEAN CORPUSCULAR VOLUME 88.8 FL (78-98); MONOCYTES % (AUTO) 0.3 % (2-12); NEUTROPHILS # (AUTO) 11.5 X10'3 (1.8-7.7); PLATELET COUNT 211 X10'3 (140-440); RED BLOOD COUNT 4.03 X10'6 (4.20-5.60); RED CELL DISTRIBUTION WIDTH 13.5 % (11.5-14.5); WHITE BLOOD COUNT 11.9 X10'3 (4.5-11.0)
[2020-07-26 03:40] LABS: PARTIAL THROMBOPLASTIN TIME 31 SECONDS (22-32)
[2020-07-26 03:43] LABS: ALANINE AMINOTRANSFERASE 54 U/L (12-78); ALBUMIN 1.9 G/DL (3.4-5.0); ALBUMIN/GLOBULIN RATIO 0.5 (1.1-1.5); ALKALINE PHOSPHATASE 152 IU/L (46-116); ANION GAP 5 (8-16); ASPARTATE AMINO TRANSFERASE 45 U/L (10-37); BILIRUBIN,TOTAL 0.2 MG/DL (0.1-1.0); BLOOD UREA NITROGEN 22 MG/DL (7-18); BUN/CREATININE RATIO 36.7 (6.6-38.0); CALCIUM 8.2 MG/DL (8.5-10.1); CHLORIDE 105 MMOL/L (99-107); GLUCOSE 187 MG/DL (70-104); PHOSPHORUS 2.8 MG/DL (2.3-4.5); POTASSIUM 3.5 MMOL/L (3.5-5.1); SODIUM 139 MMOL/L (135-145); TOTAL CARBON DIOXIDE 29.2 MMOL/L (24-32); eGFR > 90 ML/MIN
--- NOTE | 2020-07-26 06:30 | NUR ---
Received report from IRENE Martinez.
--- NOTE | 2020-07-26 06:37 | NUR ---
Problems reprioritized. Patient report given, questions answered & plan of care reviewed with Brittni BONILLA.
[2020-07-26] MEDS: enoxaparin 100mg/ml syringe SUBCUT SCH ×2 (07:51→20:59)
[2020-07-26] MEDS: cholecalciferol (vitamin D) 400 unit tablet PO SCH (07:53)
[2020-07-26] MEDS: lactobacillus rhamnosus 10,000 MMU CELLS/CAPSULE PO SCH ×2 (07:53→20:58)
[2020-07-26] MEDS: zinc sulfate 220mg capsule PO SCH (07:53)
[2020-07-26] MEDS: pantoprazole 40 MG vial IV SCH (07:54)
[2020-07-26] MEDS: docusate sod 100mg capsule PO SCH ×2 (08:00→20:00)
[2020-07-26] MEDS: lactose-reduced food (Ensure Enlive) - 237ml bottle PO SCH ×3 (08:00→18:00)
[2020-07-26] MEDS: dexmedetomidine/D5W 100mL 100 ML IV SCH ×2 (14:07→20:11)
[2020-07-26] MEDS: [UNRECOGNIZED DRUG - OTHER] IV SCH ×4 (14:16)
[2020-07-26] MEDS: ZINC IV SCH ×4 (14:16)
[2020-07-26] MEDS: FAT EMULSION 20% IV SCH ×4 (14:16)
[2020-07-26] MEDS: COPPER IV SCH ×4 (14:16)
[2020-07-26] MEDS: SELENIUM IV SCH ×4 (14:16)
[2020-07-26] MEDS: MANGANESE IV SCH ×4 (14:16)
--- NOTE | 2020-07-26 18:25 | NUR ---
Patient in room CICU 2009. I have received report from DUNIA BONILLA and had the opportunity to ask questions and assume patient care.
[2020-07-26] MEDS: insulin glargine (Lantus) pen - multi-dose SQ SCH (20:48)
[2020-07-26] MEDS: Melatonin 3mg tablet PO SCH (20:59)
[2020-07-26] MEDS: HYDROcodone/acetaminophen 5mg/325mg tablet PO PRN (21:01)
[2020-07-27] VITALS (18 sets, daily range): BP systolic 97–133; BP diastolic 57–75
[2020-07-27] MEDS: HYDROcodone/acetaminophen 5mg/325mg tablet PO PRN ×6 (01:04→23:49)
[2020-07-27] MEDS: insulin regular, human U-100 3ml vial - multi-dose SQ SCH ×4 (01:40→19:50)
[2020-07-27 03:17] LABS: BASOPHILS # (AUTO) 0.2 X10'3 (0-0.2); BASOPHILS % (AUTO) 1.3 % (0-1); EOSINOPHILS % (AUTO) 0 % (0-6); HEMATOCRIT 35.1 % (35.0-45.0); HEMOGLOBIN 11.6 g/dl (12.0-16.0); LYMPHOCYTES # (AUTO) 0.2 X10'3 (1.1-4.8); LYMPHOCYTES % (AUTO) 1.4 % (21-51); MEAN CORPUSCULAR HEMOGLOBIN 29.3 PG (27.0-31.0); MEAN CORPUSCULAR HGB CONC 33.1 g/dL (33.0-36.5); MEAN CORPUSCULAR VOLUME 88.4 FL (78-98); MEAN PLATELET VOLUME 8.9 FL (7.4-10.4); MONOCYTES # (AUTO) 0.1 X10'3 (0-0.9); MONOCYTES % (AUTO) 0.9 % (2-12); NEUTROPHILS # (AUTO) 13.5 X10'3 (1.8-7.7); NEUTROPHILS % (AUTO) 96.4 % (42-75); PLATELET COUNT 233 X10'3 (140-440); RED BLOOD COUNT 3.97 X10'6 (4.20-5.60); RED CELL DISTRIBUTION WIDTH 13.3 % (11.5-14.5)
[2020-07-27 03:29] LABS: ALANINE AMINOTRANSFERASE 47 U/L (12-78); ALBUMIN 1.9 G/DL (3.4-5.0); ALBUMIN/GLOBULIN RATIO 0.4 (1.1-1.5); ALKALINE PHOSPHATASE 164 IU/L (46-116); ANION GAP 7 (8-16); ASPARTATE AMINO TRANSFERASE 49 U/L (10-37); BILIRUBIN,TOTAL 0.2 MG/DL (0.1-1.0); BLOOD UREA NITROGEN 21 MG/DL (7-18); C-REACTIVE PROTEIN 5.73 MG/DL (0.0-0.5); CALCIUM 8.6 MG/DL (8.5-10.1); CHLORIDE 107 MMOL/L (99-107); GLUCOSE 111 MG/DL (70-104); MAGNESIUM 1.9 MG/DL (1.5-2.4); PHOSPHORUS 2.9 MG/DL (2.3-4.5); POTASSIUM 3.5 MMOL/L (3.5-5.1); SODIUM 142 MMOL/L (135-145); TOTAL CARBON DIOXIDE 28.4 MMOL/L (24-32); TOTAL PROTEIN 6.2 G/DL (6.4-8.2); eGFR > 90 ML/MIN
[2020-07-27 03:31] LABS: PARTIAL THROMBOPLASTIN TIME 31 SECONDS (22-32)
[2020-07-27 03:32] LABS: D-DIMER 19.75 MG/L FEU (0-0.50)
--- NOTE | 2020-07-27 05:15 | NUR ---
Pt tolerated bipap well, with 10-15 minute interval trials of hi malathi NC w/ NRB bleed in while taking medications. Pt encouraged to turn on sides while sleeping q 2h, pt repeatedly requests to lay on back. EDU provided about the importance of turning for oxygenation. Pt anxious throughout the night. Reports 5/10 R shoulder pain medicated w/ norco see SEP.
--- NOTE | 2020-07-27 07:05 | NUR ---
Received report from IRENE Martinez
[2020-07-27] MEDS: zinc sulfate 220mg capsule PO SCH (08:00)
[2020-07-27] MEDS: lactose-reduced food (Ensure Enlive) - 237ml bottle PO SCH ×3 (08:00→18:00)
[2020-07-27] MEDS: dexmedetomidine/D5W 100mL 100 ML IV SCH ×2 (09:10→18:41)
[2020-07-27] MEDS: enoxaparin 100mg/ml syringe SUBCUT SCH ×2 (09:13→20:01)
[2020-07-27] MEDS: pantoprazole 40 MG vial IV SCH (09:13)
[2020-07-27] MEDS: methylPREDNISolone sod succ 125mg/2ml vial IV SCH ×3 (09:13→23:49)
[2020-07-27] MEDS: lactobacillus rhamnosus 10,000 MMU CELLS/CAPSULE PO SCH ×2 (09:14→20:01)
[2020-07-27] MEDS: docusate sod 100mg capsule PO SCH ×2 (09:14→20:01)
[2020-07-27] MEDS: cholecalciferol (vitamin D) 400 unit tablet PO SCH (09:14)
--- NOTE | 2020-07-27 11:15 | NUR ---
Reassessment: Pt remains on BiPAP and tolerating TPN at goal rate. Electrolytes WNL. LBM 07/25, receiving routine bowel care. No changes to nutrition intervention at this time. Will continue to follow closely. Rec: 1. TPN via PICC line per sales training representative using 3:1 Clinimix E 5/20 w/ 100ml 20% intralipids at 95ml/hr goal. To provide 2280ml fluid, 434g DEX(3.15mg/kg/min), 109g AA, and 2132 total kcals. Initiate at 30ml/hr and if tolerated advance Q12 to goal. 2. PALB/TG Q /; daily wts 3. monitor for TPN tolerance and signs of refeeding syndrome 4. EN if respiratory status improves and able to place Corpak given functional gut as medically indicated 5. IF TF; Vital AF at 65ml/hr goal; to provide 1560ml volume, 1872kcals, 1264ml free water, and 117g protein. additional water flush 200ml Q4 6. advance diet as medically indicated to Easy to Chew/regular 7. Ensure Enlive TIDWM once PO diet resumes Addendum: 07/27/20 at [address] Amended: Links added.
[2020-07-27] MEDS: ZINC IV SCH ×4 (12:19)
[2020-07-27] MEDS: SELENIUM IV SCH ×4 (12:19)
[2020-07-27] MEDS: COPPER IV SCH ×4 (12:19)
[2020-07-27] MEDS: MANGANESE IV SCH ×4 (12:19)
[2020-07-27] MEDS: [UNRECOGNIZED DRUG - OTHER] IV SCH ×4 (12:19)
[2020-07-27] MEDS: FAT EMULSION 20% IV SCH ×4 (12:19)
[2020-07-27] MEDS ORDERED: Melatonin 3mg tablet PO PRN (13:35)
--- NOTE | 2020-07-27 18:30 | NUR ---
Patient in room CICU 2006. I have received report from Brittni BONILLA and had the opportunity to ask questions and assume patient care.
[2020-07-27] MEDS: ondansetron/PF 4mg/2ml inj IV PRN (19:13)
[2020-07-27] MEDS: insulin glargine (Lantus) pen - multi-dose SQ SCH (19:51)
[2020-07-27] MEDS: Melatonin 3mg tablet PO SCH (20:12)
[2020-07-28] VITALS (24 sets, daily range): BP systolic 97–146; BP diastolic 61–107
[2020-07-28 03:46] LABS: BASOPHILS % (AUTO) 0.1 % (0-1); EOSINOPHILS % (AUTO) 0.2 % (0-6); HEMATOCRIT 36.9 % (35.0-45.0); HEMOGLOBIN 12.6 g/dl (12.0-16.0); LYMPHOCYTES # (AUTO) 0.2 X10'3 (1.1-4.8); LYMPHOCYTES % (AUTO) 1.1 % (21-51); MEAN CORPUSCULAR HEMOGLOBIN 30.4 PG (27.0-31.0); MEAN CORPUSCULAR VOLUME 89.2 FL (78-98); MEAN PLATELET VOLUME 8.5 FL (7.4-10.4); MONOCYTES % (AUTO) 0.2 % (2-12); NEUTROPHILS # (AUTO) 15.2 X10'3 (1.8-7.7); NEUTROPHILS % (AUTO) 98.4 % (42-75); PLATELET COUNT 222 X10'3 (140-440); RED BLOOD COUNT 4.14 X10'6 (4.20-5.60); RED CELL DISTRIBUTION WIDTH 13.4 % (11.5-14.5); WHITE BLOOD COUNT 15.4 X10'3 (4.5-11.0)
[2020-07-28 03:59] LABS: ALANINE AMINOTRANSFERASE 37 U/L (12-78); ALBUMIN 1.8 G/DL (3.4-5.0); ALBUMIN/GLOBULIN RATIO 0.4 (1.1-1.5); ALKALINE PHOSPHATASE 168 IU/L (46-116); ANION GAP 4 (8-16); ASPARTATE AMINO TRANSFERASE 36 U/L (10-37); BILIRUBIN,TOTAL 0.2 MG/DL (0.1-1.0); BLOOD UREA NITROGEN 21 MG/DL (7-18); BUN/CREATININE RATIO 33.9 (6.6-38.0); C-REACTIVE PROTEIN 2.19 MG/DL (0.0-0.5); CALCIUM 8.8 MG/DL (8.5-10.1); CHLORIDE 107 MMOL/L (99-107); CREATININE 0.62 MG/DL (0.40-0.90); GLUCOSE 154 MG/DL (70-104); MAGNESIUM 2.3 MG/DL (1.5-2.4); PHOSPHORUS 3.6 MG/DL (2.3-4.5); POTASSIUM 3.9 MMOL/L (3.5-5.1); PREALBUMIN 22.7 MG/DL (19-36); SODIUM 142 MMOL/L (135-145); TOTAL PROTEIN 6.1 G/DL (6.4-8.2); TRIGLYCERIDES 104 MG/DL (20-135); eGFR > 90 ML/MIN
[2020-07-28 04:04] LABS: D-DIMER 17.85 MG/L FEU (0-0.50); PARTIAL THROMBOPLASTIN TIME 32 SECONDS (22-32)
[2020-07-28] MEDS: insulin regular, human U-100 3ml vial - multi-dose SQ SCH ×4 (04:31→21:00)
[2020-07-28] MEDS: HYDROcodone/acetaminophen 5mg/325mg tablet PO PRN ×6 (04:41→20:19)
[2020-07-28] MEDS: dexmedetomidine/D5W 100mL 100 ML IV SCH ×3 (04:42→20:18)
--- NOTE | 2020-07-28 06:26 | NUR ---
Problems reprioritized. Patient report given, questions answered & plan of care reviewed with Yeison BONILLA.
[2020-07-28] MEDS: zinc sulfate 220mg capsule PO SCH (08:00)
[2020-07-28] MEDS: lactose-reduced food (Ensure Enlive) - 237ml bottle PO SCH ×3 (08:00→18:00)
--- NOTE | 2020-07-28 08:30 | NUR ---
Trialed pt off bipap for morning meds. Used hiflow tower maxed out and nonrebreather on top; pt did not tolerate. She quickly dropped sats into the 70's in less then 1min; placed pt back on bipap and took a few minutes to recover. Was able to administer pills one at a time by briefly taking the bipap on and replacing it. Pt tolerated fine. pt also has very little reserves, she drops sats into the 80s when changing positions in bed, and takes a few minutes to recover
[2020-07-28] MEDS: docusate sod 100mg capsule PO SCH ×2 (08:46→20:23)
[2020-07-28] MEDS: lactobacillus rhamnosus 10,000 MMU CELLS/CAPSULE PO SCH ×2 (08:46→20:18)
[2020-07-28] MEDS: cholecalciferol (vitamin D) 400 unit tablet PO SCH (08:46)
[2020-07-28] MEDS: MANGANESE IV SCH ×4 (08:47)
[2020-07-28] MEDS: ZINC IV SCH ×4 (08:47)
[2020-07-28] MEDS: enoxaparin 100mg/ml syringe SUBCUT SCH ×2 (08:47→20:23)
[2020-07-28] MEDS: SELENIUM IV SCH ×4 (08:47)
[2020-07-28] MEDS: FAT EMULSION 20% IV SCH ×4 (08:47)
[2020-07-28] MEDS: pantoprazole 40 MG vial IV SCH (08:47)
[2020-07-28] MEDS: COPPER IV SCH ×4 (08:47)
[2020-07-28] MEDS: [UNRECOGNIZED DRUG - OTHER] IV SCH ×4 (08:47)
[2020-07-28] MEDS: methylPREDNISolone sod succ 125mg/2ml vial IV SCH ×3 (08:47→23:49)
[2020-07-28] MEDS: Melatonin 3mg tablet PO SCH (20:18)
[2020-07-28] MEDS: insulin glargine (Lantus) pen - multi-dose SQ SCH (21:00)
[2020-07-29] VITALS (24 sets, daily range): BP systolic 103–145; BP diastolic 63–92
[2020-07-29] MEDS: HYDROcodone/acetaminophen 5mg/325mg tablet PO PRN ×2 (00:14→03:47)
--- NOTE | 2020-07-29 02:15 | NUR ---
RN Note -Pt coughing up two large blood clots. July Betty and respiratory at bedside. Hemoptysis resolved after about 15 minutes. Face mask changed. FiO2 set to 100%.
[2020-07-29 03:40] LABS: BASOPHILS # (AUTO) 0.1 X10'3 (0-0.2); BASOPHILS % (AUTO) 0.4 % (0-1); EOSINOPHILS % (AUTO) 0.1 % (0-6); HEMATOCRIT 39.7 % (35.0-45.0); HEMOGLOBIN 13.1 g/dl (12.0-16.0); LYMPHOCYTES # (AUTO) 0.2 X10'3 (1.1-4.8); LYMPHOCYTES % (AUTO) 1.3 % (21-51); MEAN CORPUSCULAR HEMOGLOBIN 29.6 PG (27.0-31.0); MEAN CORPUSCULAR HGB CONC 33.1 g/dL (33.0-36.5); MEAN CORPUSCULAR VOLUME 89.6 FL (78-98); MEAN PLATELET VOLUME 8.9 FL (7.4-10.4); MONOCYTES # (AUTO) 0.3 X10'3 (0-0.9); MONOCYTES % (AUTO) 1.8 % (2-12); NEUTROPHILS # (AUTO) 17.3 X10'3 (1.8-7.7); NEUTROPHILS % (AUTO) 96.4 % (42-75); PLATELET COUNT 243 X10'3 (140-440); RED BLOOD COUNT 4.43 X10'6 (4.20-5.60); RED CELL DISTRIBUTION WIDTH 13.7 % (11.5-14.5)
[2020-07-29 03:50] LABS: D-DIMER 13.04 MG/L FEU (0-0.50); PARTIAL THROMBOPLASTIN TIME 31 SECONDS (22-32)
[2020-07-29 03:53] LABS: ALANINE AMINOTRANSFERASE 40 U/L (12-78); ALBUMIN/GLOBULIN RATIO 0.5 (1.1-1.5); ALKALINE PHOSPHATASE 182 IU/L (46-116); ANION GAP 7 (8-16); ASPARTATE AMINO TRANSFERASE 34 U/L (10-37); BILIRUBIN,TOTAL 0.2 MG/DL (0.1-1.0); BLOOD UREA NITROGEN 26 MG/DL (7-18); BUN/CREATININE RATIO 41.3 (6.6-38.0); CALCIUM 8.8 MG/DL (8.5-10.1); CHLORIDE 107 MMOL/L (99-107); CREATININE 0.63 MG/DL (0.40-0.90); GLUCOSE 147 MG/DL (70-104); MAGNESIUM 2.3 MG/DL (1.5-2.4); PHOSPHORUS 3.5 MG/DL (2.3-4.5); SODIUM 142 MMOL/L (135-145); TOTAL CARBON DIOXIDE 27.7 MMOL/L (24-32); TOTAL PROTEIN 6.3 G/DL (6.4-8.2); eGFR > 90 ML/MIN
[2020-07-29 04:51] LABS: TOTAL CELLS COUNTED 100
[2020-07-29 04:52] LABS: ANISOCYTOSIS 1+; PLATELET ESTIMATE NORMAL
[2020-07-29] MEDS: dexmedetomidine/D5W 100mL 100 ML IV SCH ×5 (07:25→23:11)
[2020-07-29] MEDS: methylPREDNISolone sod succ 125mg/2ml vial IV SCH ×2 (07:56→15:44)
[2020-07-29] MEDS: FAT EMULSION 20% IV SCH ×4 (07:56)
[2020-07-29] MEDS: [UNRECOGNIZED DRUG - OTHER] IV SCH ×4 (07:56)
[2020-07-29] MEDS: pantoprazole 40 MG vial IV SCH (07:56)
[2020-07-29] MEDS: ZINC IV SCH ×4 (07:56)
[2020-07-29] MEDS: MANGANESE IV SCH ×4 (07:56)
[2020-07-29] MEDS: COPPER IV SCH ×4 (07:56)
[2020-07-29] MEDS: SELENIUM IV SCH ×4 (07:56)
[2020-07-29] MEDS: cholecalciferol (vitamin D) 400 unit tablet PO SCH (07:57)
[2020-07-29] MEDS: lactose-reduced food (Ensure Enlive) - 237ml bottle PO SCH ×3 (07:57→18:00)
[2020-07-29] MEDS: zinc sulfate 220mg capsule PO SCH (07:57)
[2020-07-29] MEDS: lactobacillus rhamnosus 10,000 MMU CELLS/CAPSULE PO SCH ×2 (07:57→19:50)
[2020-07-29] MEDS: docusate sod 100mg capsule PO SCH ×2 (07:57→19:50)
[2020-07-29] MEDS: enoxaparin 100mg/ml syringe SUBCUT SCH ×2 (07:57→19:51)
--- NOTE | 2020-07-29 08:09 | NUR ---
Pt with increased work of breathing this morning and decreased sats. Fi02 increased to 100. Pressure settings increased over night from 20/12 to 20/15. Holding PO meds for now because pt too unstable
[2020-07-29] MEDS: insulin regular, human U-100 3ml vial - multi-dose SQ SCH ×3 (08:23→20:15)
[2020-07-29] MEDS ORDERED: morphine 2 MG/ML inj. syringe IV PRN (10:40)
[2020-07-29] MEDS: morphine 4 MG/ML inj SYRINge IV PRN ×3 (10:53→13:09)
[2020-07-29] MEDS ORDERED: CADD PCA waste documentation MC PRN (13:35)
[2020-07-29] MEDS ORDERED: naloxone 0.4 mg/ml inj IV PRN (13:35)
[2020-07-29] MEDS ORDERED: morphine/NS 5 mg/ml CADD 50 ML IV SCH (13:35)
[2020-07-29] MEDS: Melatonin 3mg tablet PO SCH (19:50)
[2020-07-29] MEDS: morphine/NS 5 mg/ml CADD 50 ML IV SCH ×2 (20:40→23:00)
[2020-07-29] MEDS: insulin glargine (Lantus) pen - multi-dose SQ SCH (20:55)
--- NOTE | 2020-07-29 23:30 | NUR ---
RN Note -Turned pt on back. Desaturated into the 70's and was slow to recover. Anxiety markedly improved with at bedside; even during hypoxic event, pt was able to focus on taking slow deep breaths.
[2020-07-30] VITALS (25 sets, daily range): BP systolic 88–126; BP diastolic 48–83
[2020-07-30] MEDS: morphine/NS 5 mg/ml CADD 50 ML IV SCH ×12 (01:00→23:00)
[2020-07-30 02:33] LABS: BASOPHILS % (AUTO) 0.3 % (0-1); MONOCYTES # (AUTO) 0.3 X10'3 (0-0.9); WHITE BLOOD COUNT 16.4 X10'3 (4.5-11.0)
[2020-07-30 02:35] LABS: EOSINOPHILS % (AUTO) 0.1 % (0-6); HEMATOCRIT 36.4 % (35.0-45.0); LYMPHOCYTES # (AUTO) 0.3 X10'3 (1.1-4.8); LYMPHOCYTES % (AUTO) 1.9 % (21-51); MEAN CORPUSCULAR HEMOGLOBIN 29.1 PG (27.0-31.0); MEAN CORPUSCULAR HGB CONC 32.9 g/dL (33.0-36.5); MEAN CORPUSCULAR VOLUME 88.5 FL (78-98); MEAN PLATELET VOLUME 8.4 FL (7.4-10.4); MONOCYTES % (AUTO) 2.1 % (2-12); NEUTROPHILS # (AUTO) 15.6 X10'3 (1.8-7.7); NEUTROPHILS % (AUTO) 95.6 % (42-75); PLATELET COUNT 238 X10'3 (140-440); RED BLOOD COUNT 4.11 X10'6 (4.20-5.60); RED CELL DISTRIBUTION WIDTH 13.7 % (11.5-14.5)
[2020-07-30 02:50] LABS: D-DIMER 11.36 MG/L FEU (0-0.50); PARTIAL THROMBOPLASTIN TIME 32 SECONDS (22-32)
[2020-07-30 03:08] LABS: ALANINE AMINOTRANSFERASE 43 U/L (12-78); ALBUMIN 1.8 G/DL (3.4-5.0); ALBUMIN/GLOBULIN RATIO 0.5 (1.1-1.5); ALKALINE PHOSPHATASE 169 IU/L (46-116); ANION GAP 4 (8-16); ASPARTATE AMINO TRANSFERASE 39 U/L (10-37); BILIRUBIN,TOTAL 0.3 MG/DL (0.1-1.0); BLOOD UREA NITROGEN 31 MG/DL (7-18); BUN/CREATININE RATIO 56.4 (6.6-38.0); C-REACTIVE PROTEIN 0.78 MG/DL (0.0-0.5); CALCIUM 8.4 MG/DL (8.5-10.1); CHLORIDE 107 MMOL/L (99-107); CREATININE 0.55 MG/DL (0.40-0.90); GLUCOSE 125 MG/DL (70-104); MAGNESIUM 2.1 MG/DL (1.5-2.4); PHOSPHORUS 3.4 MG/DL (2.3-4.5); POTASSIUM 4.1 MMOL/L (3.5-5.1); SODIUM 142 MMOL/L (135-145); TOTAL CARBON DIOXIDE 31.2 MMOL/L (24-32); TOTAL PROTEIN 5.8 G/DL (6.4-8.2); eGFR > 90 ML/MIN
[2020-07-30] MEDS: dexmedetomidine/D5W 100mL 100 ML IV SCH ×5 (03:22→19:08)
--- NOTE | 2020-07-30 04:00 | NUR ---
RN Note -Pt work of breathing has been increasing. July Betty notified. Pt anxiety well managed with at bedside, Precedex, and CADD pump for pain.
[2020-07-30] MEDS: lactose-reduced food (Ensure Enlive) - 237ml bottle PO SCH ×3 (06:26→17:02)
[2020-07-30] MEDS: lactobacillus rhamnosus 10,000 MMU CELLS/CAPSULE PO SCH ×2 (06:26→20:00)
[2020-07-30] MEDS: docusate sod 100mg capsule PO SCH ×2 (06:26→20:00)
[2020-07-30] MEDS: cholecalciferol (vitamin D) 400 unit tablet PO SCH (06:27)
[2020-07-30] MEDS: MANGANESE IV SCH ×4 (06:49)
[2020-07-30] MEDS: SELENIUM IV SCH ×4 (06:49)
[2020-07-30] MEDS: FAT EMULSION 20% IV SCH ×4 (06:49)
[2020-07-30] MEDS: ZINC IV SCH ×4 (06:49)
[2020-07-30] MEDS: COPPER IV SCH ×4 (06:49)
[2020-07-30] MEDS: [UNRECOGNIZED DRUG - OTHER] IV SCH ×4 (06:49)
[2020-07-30] MEDS: pantoprazole 40 MG vial IV SCH (07:05)
[2020-07-30] MEDS: methylPREDNISolone sod succ 125mg/2ml vial IV SCH ×4 (07:06→23:44)
[2020-07-30] MEDS: enoxaparin 100mg/ml syringe SUBCUT SCH ×2 (07:06→20:08)
[2020-07-30] MEDS: insulin regular, human U-100 3ml vial - multi-dose SQ SCH ×2 (07:58→14:00)
--- NOTE | 2020-07-30 10:17 | NUR ---
Reassessment: Pt continues with TPN for nutrition as per MD note pt cannot tolerate being off of BiPAP. PO meds on hold d/t pt too unstable for PO intake at this time per RN notes. LBM 07/25. Will continue to follow closely. Rec: 1. TPN via PICC line per artificial leather calender operator using 3:1 Clinimix E 5/20 w/ 100ml 20% intralipids at 95ml/hr goal. To provide 2280ml fluid, 434g DEX(3.15mg/kg/min), 109g AA, and 2132 total kcals. Initiate at 30ml/hr and if tolerated advance Q12 to goal. 2. PALB/TG Q /; daily wts 3. monitor for TPN tolerance and signs of refeeding syndrome 4. EN if respiratory status improves and able to place Corpak given functional gut as medically indicated 5. IF TF; Vital AF at 65ml/hr goal; to provide 1560ml volume, 1872kcals, 1264ml free water, and 117g protein. additional water flush 200ml Q4 6. advance diet as medically indicated to Easy to Chew/regular 7. Ensure Enlive TIDWM once PO diet resumes Addendum: 07/30/20 at [address] Amended: Links added.
--- NOTE | 2020-07-30 18:30 | NUR ---
report received from koby puente. patient with vss, at bedside in bunny suit and n-95 mask/gloves.
--- NOTE | 2020-07-30 20:00 | NUR ---
attempted to take bipap mask off for mouth care, wash patient face etc. patient tolerated only long enough to blow nose and limited mouth care, sats to 78% and patient becomes extremely anxious. mask replaced immediately, sats slowly up to 88-89 %. blows bloody musousy, clots from nose, mouth is lined with old maroon blood, unable to really clean vigorously due to time needed. sats recover, anxiety reduced, pillow cases changed, back care given.positioned comfortably on far right side.
[2020-07-30] MEDS: Melatonin 3mg tablet PO SCH (21:00)
[2020-07-30] MEDS: insulin glargine (Lantus) pen - multi-dose SQ SCH (21:35)
[2020-07-31] VITALS (24 sets, daily range): BP systolic 89–167; BP diastolic 49–89
--- NOTE | 2020-07-31 00:30 | NUR ---
still unable to tolerate removing the mask for more than maybe 30 seconds. attempted mouth care again but not as well as what is needed. patient has been sitting up 45 degrees and now back to right side - nearly prone. patient is comfortable and without distress, morphine cadd is helping to decrease the pain - generalized, bipap straps and also back pain -
[2020-07-31] MEDS: morphine/NS 5 mg/ml CADD 50 ML IV SCH ×10 (01:00→19:00)
[2020-07-31] MEDS: FAT EMULSION 20% IV SCH ×4 (02:31)
[2020-07-31] MEDS: [UNRECOGNIZED DRUG - OTHER] IV SCH ×4 (02:31)
[2020-07-31] MEDS: COPPER IV SCH ×4 (02:31)
[2020-07-31] MEDS: ZINC IV SCH ×4 (02:31)
[2020-07-31] MEDS: SELENIUM IV SCH ×4 (02:31)
[2020-07-31] MEDS: MANGANESE IV SCH ×4 (02:31)
[2020-07-31 03:33] LABS: BASOPHILS # (AUTO) 0.1 X10'3 (0-0.2); BASOPHILS % (AUTO) 0.4 % (0-1); EOSINOPHILS % (AUTO) 0 % (0-6); HEMATOCRIT 36.2 % (35.0-45.0); HEMOGLOBIN 11.9 g/dl (12.0-16.0); LYMPHOCYTES # (AUTO) 0.2 X10'3 (1.1-4.8); LYMPHOCYTES % (AUTO) 0.9 % (21-51); MEAN CORPUSCULAR HEMOGLOBIN 29.2 PG (27.0-31.0); MEAN CORPUSCULAR HGB CONC 32.8 g/dL (33.0-36.5); MEAN CORPUSCULAR VOLUME 89.2 FL (78-98); MEAN PLATELET VOLUME 8.6 FL (7.4-10.4); MONOCYTES # (AUTO) 0.4 X10'3 (0-0.9); MONOCYTES % (AUTO) 2.3 % (2-12); NEUTROPHILS # (AUTO) 16.7 X10'3 (1.8-7.7); NEUTROPHILS % (AUTO) 96.4 % (42-75); PLATELET COUNT 244 X10'3 (140-440); RED BLOOD COUNT 4.06 X10'6 (4.20-5.60); RED CELL DISTRIBUTION WIDTH 13.5 % (11.5-14.5); WHITE BLOOD COUNT 17.4 X10'3 (4.5-11.0)
[2020-07-31] MEDS: insulin regular, human U-100 3ml vial - multi-dose SQ SCH ×2 (03:34→13:50)
[2020-07-31 03:39] LABS: ALANINE AMINOTRANSFERASE 45 U/L (12-78); ALBUMIN 1.8 G/DL (3.4-5.0); ALBUMIN/GLOBULIN RATIO 0.5 (1.1-1.5); ALKALINE PHOSPHATASE 165 IU/L (46-116); ANION GAP 3 (8-16); ASPARTATE AMINO TRANSFERASE 39 U/L (10-37); BILIRUBIN,TOTAL 0.4 MG/DL (0.1-1.0); BLOOD UREA NITROGEN 31 MG/DL (7-18); BUN/CREATININE RATIO 50.8 (6.6-38.0); C-REACTIVE PROTEIN 1.36 MG/DL (0.0-0.5); CALCIUM 8.4 MG/DL (8.5-10.1); CHLORIDE 105 MMOL/L (99-107); CREATININE 0.61 MG/DL (0.40-0.90); GLUCOSE 159 MG/DL (70-104); MAGNESIUM 2.1 MG/DL (1.5-2.4); PHOSPHORUS 3.2 MG/DL (2.3-4.5); POTASSIUM 4.4 MMOL/L (3.5-5.1); SODIUM 140 MMOL/L (135-145); TOTAL CARBON DIOXIDE 31.8 MMOL/L (24-32); TOTAL PROTEIN 5.8 G/DL (6.4-8.2); eGFR > 90 ML/MIN
[2020-07-31 03:45] LABS: PARTIAL THROMBOPLASTIN TIME 35 SECONDS (22-32)
[2020-07-31 04:14] LABS: D-DIMER 10.52 MG/L FEU (0-0.50)
[2020-07-31] MEDS: dexmedetomidine/D5W 100mL 100 ML IV SCH ×4 (05:11→16:10)
--- NOTE | 2020-07-31 05:40 | NUR ---
patient was repositioned from her far right side to sitting up, drops sats to 79%, fio2 to 100 %, layed back down on far right side nearly prone - and sats finally begin increasing 85-86. will continue to monitor
--- NOTE | 2020-07-31 06:30 | NUR ---
Patient in room CICU 2006. I have received report and had the opportunity to ask questions and assume patient care.
[2020-07-31 07:54] LABS: ABG BASE EXCESS 0.3 mmol/L (-2.0-2.0); ABG PCO2 (T) 42.3 mmHg (32.0-45.0); ABG PO2 (T) 63.1 mmHg (75.0-100.0); ALLEN'S TEST POSITIVE; FCOHb 0.9 % (0.0-3.9); FMetHb 0.2 % (0.0-1.5); RESPIRATORY RATE 30 b/min
[2020-07-31] MEDS: cholecalciferol (vitamin D) 400 unit tablet PO SCH (08:00)
[2020-07-31] MEDS: docusate sod 100mg capsule PO SCH ×2 (08:00→20:00)
[2020-07-31] MEDS: lactobacillus rhamnosus 10,000 MMU CELLS/CAPSULE PO SCH ×2 (08:00→20:00)
[2020-07-31] MEDS: lactose-reduced food (Ensure Enlive) - 237ml bottle PO SCH ×3 (08:00→18:00)
[2020-07-31] MEDS: enoxaparin 100mg/ml syringe SUBCUT SCH (08:22)
[2020-07-31] MEDS: methylPREDNISolone sod succ 125mg/2ml vial IV SCH ×3 (08:23→23:55)
[2020-07-31] MEDS: pantoprazole 40 MG vial IV SCH (08:23)
[2020-07-31] MEDS: methylnaltrexone br 12mg/0.6ml inj***SubQ only SQ SCH (11:35)
--- NOTE | 2020-07-31 15:13 | NUR ---
Attempted to prone pt. Pt was on left side. Pt desaturated to 76%, became tachypneic, accessory muscles used. Pt speaking four to five word sentences. Returned pt to supine position up in bed. Currently resting, slow to recover. SpO2 at 85.
--- NOTE | 2020-07-31 16:48 | NUR ---
Pt proned. Bipap mask changed by RT r/t skin breakdown on the cheeks. RT used manual percussive therapy. Pt responded well. Saturating at 96%. Tolerating prone position well.
--- NOTE | 2020-07-31 17:00 | NUR ---
At 1700 hour, I went into pt room to help with the BiPAP adjustment while pt was placed in prone position. Few minutes after readjusting mask, pt began to desaturate to 66% and within seconds desaturated to 33%. Called Angel Luis Hernández RN preceptor for help who then called for a code blue. Notified Paulina and supervisor propellant charge loading.
[2020-07-31] MEDS ORDERED: propofol 1000mg/100ml bottle 100 ML IV SCH ×2 (17:35→17:41)
[2020-07-31 18:04] LABS: ABG BASE EXCESS -3.1 mmol/L (-2.0-2.0); ABG HCO3 28.2 mmol/L (22.0-26.0); ABG OXYGEN SATURATION 63.4 % (94-97); ABG PCO2 (T) 83.3 mmHg (32.0-45.0); ABG PO2 (T) 39.6 mmHg (75.0-100.0); ALLEN'S TEST POSITIVE; FCOHb 1.1 % (0.0-3.9); FMetHb 0.2 % (0.0-1.5); FO2Hb 62.6 % (94-97); PEEP 15 cm H2O; RESPIRATORY RATE 22 b/min; TIDAL VOLUME 350 mL; TOTAL HEMOGLOBIN 14.7 G/dl (12.0-16.0)
[2020-07-31] MEDS ORDERED: midazolam 2 mg/2 ml injection IV ONE (18:10)
[2020-07-31] MEDS ORDERED: fentaNYL/PF 50MCG/1 ML 2ML syringe IV PRN (18:10)
[2020-07-31] MEDS ORDERED: MIDAZolam 5mg/ml 2ml vial IV ONE (18:15)
[2020-07-31] MEDS ORDERED: NORepinephrine 8mg/ 250ml NS 250 ML IV ONE (18:17)
[2020-07-31] MEDS ORDERED: NORepinephrine inj. 8 MG in normal saline 250ml IV soln 242 ML IV SCH (18:20)
--- NOTE | 2020-07-31 18:20 | NUR ---
Patient in room CICU 2005. I have received report from IRENE Hein and had the opportunity to ask questions and assume patient care. Report done at bedside. Patient was intubated at 1715 with 7.0 ET tube secured at 23cm at the teeth. Currently on ventilator CMV/PC setting 100% FiO2 PEEP of 15. Patient asynchronous with ventilator, accessory muscle use, with shallow breaths rate of 14-16. Ventilator is ventilating patient at a rate at 24. Propofol infusing per MD order. REBEKA Cates at bedside, notified of patients status, decreasing blood pressure with MAP in the 40's. Order for Levophed placed. Propofol discontinued. Charge nurse notified of patients condition. Patients at bedside. director dance at bedside. Order for 20 mg Rocuronium IV by REBEKA Cates for control of respiratory rate to allow ventilation with the ventilator. Order for Versed and Fentanyl drips. Blood drawn for repeat lab work. Increased ectopy on ECG, sinus rhythm with frequent PVC's, bigeminy, trigeminy. Order for Albumin from REBEKA Cates. 1849 Code called for heart rate 260's SVT on the monitor. ER MD at bedside, 6 mg Adenosine administered rapid IV push with conversion to sinus tachycardia in the 110's - 80's with frequent non-perfusing PVC's. Amiodarone bolus administered per ER MD order followed with drip per protocol. Patient continued to have asynchronous respirations with ventilator, labored, with accessory muscle use. Order from Marco Hernández NP to increase Versed to max dose quickly to decrease the accessory muscle use and asynchronous respiratory rate with ventilator as tolerated by patient. Repeat ABG completed by RT.
[2020-07-31] MEDS: NORepinephrine 8mg/ 250ml NS 250 ML IV SCH (18:26)
[2020-07-31] MEDS ORDERED: albumin (Human) 5% 250ml 500 ML IV ONE (18:28)
--- NOTE | 2020-07-31 18:28 | NUR ---
At approximately 1715 hours pt began having some respiratory distress. I entered pt's room and assisted oscar Jim RN in repositioning patient back to supine position. Observed nose bleed and hemoptysis. Pt was gasping for breath and was becoming cyanotic with pulse present. Manual ventilation started and respiratory therapy assistance requested. I ended up calling a code blue to obtain assistance as I was having trouble ventilating the pt. Code team arrived and Dr. Soliz from ED responded. He was able to intubated pt at approximately 1730 hrs.
[2020-07-31] MEDS: FENTANYL-0.9 % NACL/PF 100 ML IV PRN (18:30)
[2020-07-31] MEDS ORDERED: albumin (Human) 5% 250ml 250 ML IV ONE ×2 (18:30)
--- NOTE | 2020-07-31 18:35 | NUR ---
Problems reprioritized. Patient report given, questions answered & plan of care reviewed with IRENE Hyman.
[2020-07-31] MEDS ORDERED: rocuronium 10mg/ml inj IV ONE (18:45)
[2020-07-31 18:53] LABS: BASOPHILS % (AUTO) 0.1 % (0-1); EOSINOPHILS % (AUTO) 0.1 % (0-6); HEMATOCRIT 40.5 % (35.0-45.0); LYMPHOCYTES # (AUTO) 1.3 X10'3 (1.1-4.8); LYMPHOCYTES % (AUTO) 7.1 % (21-51); MEAN CORPUSCULAR HEMOGLOBIN 29.5 PG (27.0-31.0); MEAN CORPUSCULAR HGB CONC 32.1 g/dL (33.0-36.5); MEAN CORPUSCULAR VOLUME 91.8 FL (78-98); MEAN PLATELET VOLUME 8.9 FL (7.4-10.4); MONOCYTES # (AUTO) 0.2 X10'3 (0-0.9); MONOCYTES % (AUTO) 1.1 % (2-12); NEUTROPHILS # (AUTO) 16.9 X10'3 (1.8-7.7); NEUTROPHILS % (AUTO) 91.6 % (42-75); PLATELET COUNT 294 X10'3 (140-440); RED BLOOD COUNT 4.41 X10'6 (4.20-5.60); WHITE BLOOD COUNT 18.5 X10'3 (4.5-11.0)
[2020-07-31] MEDS ORDERED: amiodarone 150mg/dext, iso-os 100 ML IV ONE ×2 (18:53→18:55)
[2020-07-31 19:00] LABS: ALANINE AMINOTRANSFERASE 48 U/L (12-78); ALBUMIN 1.9 G/DL (3.4-5.0); ALBUMIN/GLOBULIN RATIO 0.4 (1.1-1.5); ALKALINE PHOSPHATASE 185 IU/L (46-116); ANION GAP 7 (8-16); ASPARTATE AMINO TRANSFERASE 51 U/L (10-37); BILIRUBIN,TOTAL 0.8 MG/DL (0.1-1.0); BLOOD UREA NITROGEN 29 MG/DL (7-18); BUN/CREATININE RATIO 33.3 (6.6-38.0); CALCIUM 8.4 MG/DL (8.5-10.1); CHLORIDE 102 MMOL/L (99-107); CREATININE 0.87 MG/DL (0.40-0.90); GLUCOSE 287 MG/DL (70-104); MAGNESIUM 2.2 MG/DL (1.5-2.4); SODIUM 137 MMOL/L (135-145); TOTAL CARBON DIOXIDE 28.3 MMOL/L (24-32); TOTAL PROTEIN 6.7 G/DL (6.4-8.2); eGFR 65 ML/MIN
[2020-07-31] MEDS: amiodarone/D5 360MG/200ML BAG 200 ML IV SCH (19:17)
[2020-07-31 19:22] LABS: BASOPHILS % (AUTO) 0 % (0-1); EOSINOPHILS % (AUTO) 0.1 % (0-6); HEMATOCRIT 38.6 % (35.0-45.0); HEMOGLOBIN 12.5 g/dl (12.0-16.0); LYMPHOCYTES # (AUTO) 0.6 X10'3 (1.1-4.8); LYMPHOCYTES % (AUTO) 3.5 % (21-51); MEAN CORPUSCULAR HEMOGLOBIN 29.4 PG (27.0-31.0); MEAN CORPUSCULAR HGB CONC 32.4 g/dL (33.0-36.5); MEAN CORPUSCULAR VOLUME 90.7 FL (78-98); MEAN PLATELET VOLUME 8.8 FL (7.4-10.4); MONOCYTES # (AUTO) 0.3 X10'3 (0-0.9); NEUTROPHILS # (AUTO) 15.8 X10'3 (1.8-7.7); NEUTROPHILS % (AUTO) 94.4 % (42-75); PLATELET COUNT 280 X10'3 (140-440); RED BLOOD COUNT 4.25 X10'6 (4.20-5.60); RED CELL DISTRIBUTION WIDTH 13.8 % (11.5-14.5); WHITE BLOOD COUNT 16.7 X10'3 (4.5-11.0)
[2020-07-31 19:30] LABS: ALANINE AMINOTRANSFERASE 42 U/L (12-78); ALBUMIN 1.8 G/DL (3.4-5.0); ALBUMIN/GLOBULIN RATIO 0.4 (1.1-1.5); ALKALINE PHOSPHATASE 165 IU/L (46-116); ANION GAP 9 (8-16); ASPARTATE AMINO TRANSFERASE 38 U/L (10-37); BILIRUBIN,TOTAL 0.8 MG/DL (0.1-1.0); BLOOD UREA NITROGEN 30 MG/DL (7-18); BUN/CREATININE RATIO 34.5 (6.6-38.0); CALCIUM 8.2 MG/DL (8.5-10.1); CHLORIDE 103 MMOL/L (99-107); CREATININE 0.87 MG/DL (0.40-0.90); GLUCOSE 290 MG/DL (70-104); POTASSIUM 4.7 MMOL/L (3.5-5.1); SODIUM 139 MMOL/L (135-145); TOTAL CARBON DIOXIDE 26.7 MMOL/L (24-32); TOTAL PROTEIN 6.1 G/DL (6.4-8.2); eGFR 65 ML/MIN
[2020-07-31 19:35] LABS: ABG BASE EXCESS -5.2 mmol/L (-2.0-2.0); ABG OXYGEN SATURATION 92.6 % (94-97); ABG PCO2 (T) 74.2 mmHg (32.0-45.0); ABG PO2 (T) 80.8 mmHg (75.0-100.0); FCOHb 1.2 % (0.0-3.9); FMetHb 0.2 % (0.0-1.5); FO2Hb 91.3 % (94-97); PATIENT TEMPERATURE 37.5; PEEP 15 cm H2O; TOTAL HEMOGLOBIN 13.2 G/dl (12.0-16.0)
[2020-07-31] MEDS: ipratropium/albuterol 3ml nebule NEB SCH ×2 (20:00→23:30)
[2020-07-31] MEDS: insulin glargine (Lantus) pen - multi-dose SQ SCH (21:00)
[2020-07-31] MEDS: Melatonin 3mg tablet PO SCH (21:00)
[2020-07-31] MEDS: midazolam 100mg in NS 100ml 100 ML IV PRN (22:17)
[2020-07-31 22:30] LABS: TOTAL CELLS COUNTED 100
[2020-07-31 22:31] LABS: PLATELET ESTIMATE NORMAL
[2020-08-01] VITALS (24 sets, daily range): BP systolic 89–146; BP diastolic 44–81
[2020-08-01] MEDS: amiodarone/D5 360MG/200ML BAG 200 ML IV SCH ×4 (00:32→23:20)
--- NOTE | 2020-08-01 02:00 | NUR ---
Marco Hernández, JAZMÍN made aware of patients subcutaneous emphysema as shown on x-ray and also to palpation of neck. repeat chest x-ray ordered. patient with equal rise and fall of chest, equal lung sounds bilaterally,
[2020-08-01] MEDS: NORepinephrine 8mg/ 250ml NS 250 ML IV SCH ×2 (02:26→17:22)
[2020-08-01] MEDS ORDERED: acetaminophen 650mg rectal suppository RC PRN ×2 (02:35)
[2020-08-01] MEDS: midazolam 100mg in NS 100ml 100 ML IV PRN ×5 (02:44→21:18)
[2020-08-01] MEDS: [UNRECOGNIZED DRUG - OTHER] IV SCH ×4 (02:45)
[2020-08-01] MEDS: FAT EMULSION 20% IV SCH ×4 (02:45)
[2020-08-01] MEDS: MANGANESE IV SCH ×4 (02:45)
[2020-08-01] MEDS: SELENIUM IV SCH ×4 (02:45)
[2020-08-01] MEDS: ZINC IV SCH ×4 (02:45)
[2020-08-01] MEDS: COPPER IV SCH ×4 (02:45)
[2020-08-01 03:42] LABS: BASOPHILS # (AUTO) 0.1 X10'3 (0-0.2); BASOPHILS % (AUTO) 0.5 % (0-1); EOSINOPHILS % (AUTO) 0 % (0-6); HEMATOCRIT 33.8 % (35.0-45.0); HEMOGLOBIN 11.1 g/dl (12.0-16.0); LYMPHOCYTES # (AUTO) 0.2 X10'3 (1.1-4.8); LYMPHOCYTES % (AUTO) 1.5 % (21-51); MEAN CORPUSCULAR HEMOGLOBIN 29.4 PG (27.0-31.0); MEAN CORPUSCULAR HGB CONC 32.8 g/dL (33.0-36.5); MEAN CORPUSCULAR VOLUME 89.9 FL (78-98); MEAN PLATELET VOLUME 8.5 FL (7.4-10.4); MONOCYTES # (AUTO) 0.2 X10'3 (0-0.9); MONOCYTES % (AUTO) 1.2 % (2-12); NEUTROPHILS % (AUTO) 96.8 % (42-75); PLATELET COUNT 248 X10'3 (140-440); RED BLOOD COUNT 3.76 X10'6 (4.20-5.60); RED CELL DISTRIBUTION WIDTH 13.9 % (11.5-14.5); WHITE BLOOD COUNT 13.4 X10'3 (4.5-11.0)
[2020-08-01 03:55] LABS: PARTIAL THROMBOPLASTIN TIME 33 SECONDS (22-32)
[2020-08-01 03:58] LABS: ALANINE AMINOTRANSFERASE 35 U/L (12-78); ALBUMIN 2.2 G/DL (3.4-5.0); ALBUMIN/GLOBULIN RATIO 0.6 (1.1-1.5); ALKALINE PHOSPHATASE 132 IU/L (46-116); ANION GAP 6 (8-16); ASPARTATE AMINO TRANSFERASE 30 U/L (10-37); BILIRUBIN,TOTAL 1.1 MG/DL (0.1-1.0); BLOOD UREA NITROGEN 30 MG/DL (7-18); CALCIUM 8.6 MG/DL (8.5-10.1); CHLORIDE 103 MMOL/L (99-107); GLUCOSE 224 MG/DL (70-104); POTASSIUM 4.5 MMOL/L (3.5-5.1); PREALBUMIN 22.6 MG/DL (19-36); SODIUM 137 MMOL/L (135-145); TOTAL CARBON DIOXIDE 27.8 MMOL/L (24-32); TOTAL PROTEIN 6.1 G/DL (6.4-8.2); TRIGLYCERIDES 120 MG/DL (20-135); eGFR 55 ML/MIN
[2020-08-01] MEDS: ipratropium/albuterol 3ml nebule NEB SCH ×6 (04:03→23:32)
[2020-08-01 04:13] LABS: ABG BASE EXCESS -1.5 mmol/L (-2.0-2.0); ABG HCO3 24.8 mmol/L (22.0-26.0); ABG OXYGEN SATURATION 96.5 % (94-97); ABG PCO2 (T) 51.8 mmHg (32.0-45.0); ABG PO2 (T) 99.6 mmHg (75.0-100.0); ALLEN'S TEST POSITIVE; FCOHb 0.5 % (0.0-3.9); FMetHb 0.2 % (0.0-1.5); FO2Hb 95.8 % (94-97); PATIENT TEMPERATURE 38.7; PEEP 15 cm H2O
[2020-08-01] MEDS: FENTANYL-0.9 % NACL/PF 100 ML IV PRN ×6 (04:22→22:31)
--- NOTE | 2020-08-01 06:36 | NUR ---
Problems reprioritized. Patient report given, questions answered & plan of care reviewed with IRENE Elkins.
[2020-08-01] MEDS: cholecalciferol (vitamin D) 400 unit tablet PO SCH (08:00)
[2020-08-01] MEDS: docusate sod 100mg capsule PO SCH (08:00)
[2020-08-01] MEDS: lactobacillus rhamnosus 10,000 MMU CELLS/CAPSULE PO SCH ×2 (08:00→20:00)
[2020-08-01] MEDS: lactose-reduced food (Ensure Enlive) - 237ml bottle PO SCH ×3 (08:00→18:00)
[2020-08-01] MEDS: enoxaparin 60mg/0.6ml syringe SUBCUT SCH ×2 (08:00→20:00)
[2020-08-01] MEDS: methylPREDNISolone sod succ 125mg/2ml vial IV SCH ×2 (08:21→17:21)
[2020-08-01] MEDS: pantoprazole 40 MG vial IV SCH (08:21)
[2020-08-01 09:16] LABS: D-DIMER 6.26 MG/L FEU (0-0.50)
[2020-08-01] MEDS: vancomycin/NS 1 GM ADD-VANTAGE 250 ML IV SCH ×2 (12:45→23:17)
[2020-08-01] MEDS: ceFAZolin/D5W- 1GM premix 50 ML IV SCH ×2 (12:45→17:20)
[2020-08-01] MEDS: insulin regular, human U-100 3ml vial - multi-dose SQ SCH (13:20)
--- NOTE | 2020-08-01 15:24 | NUR ---
Reassessment: Pt continues with TPN for nutrition as per MD note pt cannot F/u 08/01: Pt s/p near respiratory arrest yesterday and intubated pending OG placement today per RN. Noted CRP 24.77 this AM up from 1.36 yesterday w/ COVID DX s/p chest x-ray today showing multifocal PNA per EMR. OGTF to start today per race car driver at rounds this AM; pending TF consult at this time. LBM 1/4 receiving routine relistor and colace. PALB 22.6 this AM WNL and pt tolerating current TPN at goal; lack of PO nutrition likely contributing to constipation as well. TF recs below since pending consult; will monitor for TF tolerance onc initiated given constipation. Rec: 1. TPN via PICC line per race car driver using 3:1 Clinimix E 5/20 w/ 100ml 20% intralipids at 95ml/hr goal. To provide 2280ml fluid, 434g DEX(3.15mg/kg/min), 109g AA, and 2132 total kcals. Initiate at 30ml/hr and if tolerated advance Q12 to goal. 2. PALB/TG Q /; daily wts 3. IF OGTF; Vital AF at 65ml/hr goal; to provide 1560ml volume, 1872kcals, 1264ml free water, and 117g protein. 4. IF TF to start; monitor for tolerance given constipation and consider weaning TPN once EN tolerance assured 5. Additional water flush per race car driver recs pending serum Na once PN to be weaned Addendum: 08/01/20 at [address] Amended: Links added.
[2020-08-01] MEDS: CISatracurium besylate inj. 100 MG in normal saline 100ml IV soln 90 ML IV PRN (17:24)
[2020-08-01] MEDS ORDERED: vancomycin/NS 1 GM ADD-VANTAGE 250 ML IV SCH (20:00)
[2020-08-01] MEDS: mineral oil/petrolatum ophthal oint EACHEYE SCH (20:00)
[2020-08-01] MEDS: docusate sodium 100mg/10ml UD cup NG SCH (20:00)
[2020-08-01] MEDS: insulin glargine (Lantus) pen - multi-dose SQ SCH (21:00)
[2020-08-01] MEDS: Melatonin 3mg tablet PO SCH (21:00)
[2020-08-02] VITALS (24 sets, daily range): BP systolic 92–122; BP diastolic 38–80
[2020-08-02] MEDS: methylPREDNISolone sod succ 125mg/2ml vial IV SCH ×4 (01:01→23:58)
[2020-08-02] MEDS: ceFAZolin/D5W- 1GM premix 50 ML IV SCH ×4 (01:01→23:58)
[2020-08-02] MEDS: FENTANYL-0.9 % NACL/PF 100 ML IV PRN ×7 (01:45→21:36)
[2020-08-02] MEDS: midazolam 100mg in NS 100ml 100 ML IV PRN ×5 (01:49→21:43)
[2020-08-02] MEDS: mineral oil/petrolatum ophthal oint EACHEYE SCH ×4 (02:00→19:48)
[2020-08-02 02:41] LABS: BASOPHILS # (AUTO) 0.1 X10'3 (0-0.2); BASOPHILS % (AUTO) 0.9 % (0-1); EOSINOPHILS % (AUTO) 0 % (0-6); HEMATOCRIT 30.6 % (35.0-45.0); HEMOGLOBIN 10.1 g/dl (12.0-16.0); LYMPHOCYTES # (AUTO) 0.2 X10'3 (1.1-4.8); LYMPHOCYTES % (AUTO) 1.7 % (21-51); MEAN CORPUSCULAR HGB CONC 33.1 g/dL (33.0-36.5); MEAN CORPUSCULAR VOLUME 90.7 FL (78-98); MEAN PLATELET VOLUME 8.3 FL (7.4-10.4); MONOCYTES # (AUTO) 0.3 X10'3 (0-0.9); NEUTROPHILS # (AUTO) 9.9 X10'3 (1.8-7.7); NEUTROPHILS % (AUTO) 94.4 % (42-75); PLATELET COUNT 225 X10'3 (140-440); RED BLOOD COUNT 3.38 X10'6 (4.20-5.60); RED CELL DISTRIBUTION WIDTH 14.3 % (11.5-14.5); WHITE BLOOD COUNT 10.4 X10'3 (4.5-11.0)
[2020-08-02 03:00] LABS: ALANINE AMINOTRANSFERASE 36 U/L (12-78); ALBUMIN 1.9 G/DL (3.4-5.0); ALBUMIN/GLOBULIN RATIO 0.5 (1.1-1.5); ALKALINE PHOSPHATASE 119 IU/L (46-116); ANION GAP 6 (8-16); ASPARTATE AMINO TRANSFERASE 31 U/L (10-37); BILIRUBIN,TOTAL 0.8 MG/DL (0.1-1.0); BLOOD UREA NITROGEN 31 MG/DL (7-18); BUN/CREATININE RATIO 29.8 (6.6-38.0); C-REACTIVE PROTEIN 22.31 MG/DL (0.0-0.5); CALCIUM 8.7 MG/DL (8.5-10.1); CHLORIDE 107 MMOL/L (99-107); CREATININE 1.04 MG/DL (0.40-0.90); GLUCOSE 191 MG/DL (70-104); MAGNESIUM 2.4 MG/DL (1.5-2.4); PHOSPHORUS 3.6 MG/DL (2.3-4.5); POTASSIUM 4.3 MMOL/L (3.5-5.1); SODIUM 144 MMOL/L (135-145); TOTAL CARBON DIOXIDE 31.3 MMOL/L (24-32); TOTAL PROTEIN 5.9 G/DL (6.4-8.2); eGFR 53 ML/MIN
[2020-08-02 03:07] LABS: D-DIMER 4.45 MG/L FEU (0-0.50)
[2020-08-02 03:09] LABS: PARTIAL THROMBOPLASTIN TIME 38 SECONDS (22-32)
--- NOTE | 2020-08-02 03:19 | NUR ---
pt supine for pt care and repositioning. pt did not tolerate being supine. Pt's heart rate dropped to the 40's for a short period of time with multiple pvc. pt sats dropped into the 70's while on 100% fi02. pt personal care stopped and proning resumed
--- NOTE | 2020-08-02 03:52 | NUR ---
pt continued to desat into the 60's. RT and nursing at bedside. Rt manipulated ET tube to fix the alignment. pt continues on 100%fi02 with sats in the mid 80's Macho SH[employer]'S SURVEYOR also informed
--- NOTE | 2020-08-02 04:09 | NUR ---
bed set to rotate only to the left and center. sats 94-96 with peep of 16
[2020-08-02] MEDS: ipratropium/albuterol 3ml nebule NEB SCH ×6 (04:14→23:43)
[2020-08-02 05:27] LABS: ABG BASE EXCESS 4.2 mmol/L (-2.0-2.0); ABG HCO3 35.4 mmol/L (22.0-26.0); ABG PO2 (T) 92.3 mmHg (75.0-100.0); ALLEN'S TEST POSITIVE; FCOHb 0.6 % (0.0-3.9); FMetHb 0.2 % (0.0-1.5); FO2Hb 96.2 % (94-97); PATIENT TEMPERATURE 35.3; PEEP 15 cm H2O; RESPIRATORY RATE 24 b/min; TOTAL HEMOGLOBIN 11.3 G/dl (12.0-16.0)
[2020-08-02] MEDS: amiodarone/D5 360MG/200ML BAG 200 ML IV SCH ×4 (07:19→23:29)
[2020-08-02] MEDS: lactose-reduced food (Ensure Enlive) - 237ml bottle PO SCH (08:00)
[2020-08-02] MEDS: NORepinephrine 8mg/ 250ml NS 250 ML IV SCH ×2 (08:02→19:03)
[2020-08-02] MEDS: CISatracurium besylate inj. 100 MG in normal saline 100ml IV soln 90 ML IV PRN (08:04)
[2020-08-02] MEDS: pantoprazole 40 MG vial IV SCH (08:04)
[2020-08-02] MEDS: methylnaltrexone br 12mg/0.6ml inj***SubQ only SQ SCH (08:04)
[2020-08-02] MEDS: lactobacillus rhamnosus 10,000 MMU CELLS/CAPSULE PO SCH (08:05)
[2020-08-02] MEDS: enoxaparin 60mg/0.6ml syringe SUBCUT SCH ×2 (08:05→19:47)
[2020-08-02] MEDS: docusate sodium 100mg/10ml UD cup NG SCH ×2 (08:05→19:46)
[2020-08-02] MEDS: cholecalciferol (vitamin D) 400 unit tablet PO SCH (08:05)
[2020-08-02] MEDS: insulin regular, human U-100 3ml vial - multi-dose SQ SCH ×3 (10:00→21:32)
[2020-08-02] MEDS: vancomycin/NS 1 GM ADD-VANTAGE 250 ML IV SCH ×2 (11:13→21:42)
--- NOTE | 2020-08-02 12:15 | NUR ---
TF Consult: OGTF to start today per carrot tier; TF ordered at 20ml/hr last night by PARTS BACK COUNTER MAN so will start at 30ml/hr for conservative initiation given pressures. Noted MAP 55 this AM on levophed though RN reports MAP likely higher at this time since levophed has now been increased. Will monitor for TF tolerance and signs of intolerance on vent especially given constipation 8 days. Fortunately pt meeting needs w/ TPN at this time; will monitor for PN wean as medically indicated as EN advances. Rec: 1. TPN via PICC line per carrot tier using 3:1 Clinimix E 5/20 w/ 100ml 20% intralipids at 95ml/hr goal. To provide 2280ml fluid, 434g DEX(3.15mg/kg/min), 109g AA, and 2132 total kcals. Initiate at 30ml/hr and if tolerated advance Q12 to goal. 2. PALB/TG Q /; daily wts 3. OGTF per MD using Vital AF at 65ml/hr goal; to provide 1560ml volume, 1872kcals, 1264ml free water, and 117g protein. Initiate at 30ml/hr and advance 20ml Q8 to goal as tolerated. 4. monitor for TF tolerance given constipation and MAP 55 on pressors this AM 5. Additional water flush per carrot tier recs pending serum Na once PN to be weaned Addendum: 08/02/20 at [address] Amended: Links added.
[2020-08-02] MEDS ORDERED: acetaminophen 325mg/10.15ml oral unit dose solution OGT PRN ×2 (16:53)
[2020-08-02] MEDS ORDERED: dextrose ORAL solution 15 GM/59 ML bottle OGT PRN ×2 (16:54)
[2020-08-02] MEDS ORDERED: lactulose 20gm/30ml cup OGT PRN (16:55)
[2020-08-02] MEDS ORDERED: lactose-reduced food (Ensure Enlive) - 237ml bottle OGT SCH (16:55)
[2020-08-02] MEDS ORDERED: LORazepam 0.5 MG tablet OGT PRN (16:56)
[2020-08-02] MEDS ORDERED: POTASSIUM BICARB 20meq eff tab 20 MEQ TABLET.EFF OGT PRN ×2 (16:57)
[2020-08-02] MEDS: budesonide 0.5mg/2ml UD nebule IH SCH (19:36)
[2020-08-02] MEDS: enoxaparin 30mg/0.3ml syringe SUBCUT SCH (19:47)
[2020-08-02] MEDS: lactobacillus rhamnosus 10,000 MMU CELLS/CAPSULE OGT SCH (19:48)
[2020-08-02] MEDS: insulin glargine (Lantus) pen - multi-dose SQ SCH (21:30)
[2020-08-02] MEDS ORDERED: VANCOMYCIN LEVEL IV ONE (21:30)
[2020-08-03] VITALS (24 sets, daily range): BP systolic 86–136; BP diastolic 39–95
[2020-08-03] MEDS: FENTANYL-0.9 % NACL/PF 100 ML IV PRN ×8 (00:52→23:36)
[2020-08-03] MEDS: midazolam 100mg in NS 100ml 100 ML IV PRN ×5 (02:13→22:24)
[2020-08-03 02:38] LABS: LYMPHOCYTES # (AUTO) 0.2 X10'3 (1.1-4.8); MONOCYTES # (AUTO) 0.6 X10'3 (0-0.9)
[2020-08-03 02:41] LABS: BASOPHILS % (AUTO) 0.2 % (0-1); EOSINOPHILS % (AUTO) 0.1 % (0-6); HEMATOCRIT 30.8 % (35.0-45.0); LYMPHOCYTES % (AUTO) 1.2 % (21-51); MEAN CORPUSCULAR HEMOGLOBIN 30.1 PG (27.0-31.0); MEAN CORPUSCULAR HGB CONC 32.4 g/dL (33.0-36.5); MEAN CORPUSCULAR VOLUME 92.9 FL (78-98); MEAN PLATELET VOLUME 8.4 FL (7.4-10.4); MONOCYTES % (AUTO) 3.7 % (2-12); NEUTROPHILS # (AUTO) 14.6 X10'3 (1.8-7.7); NEUTROPHILS % (AUTO) 94.8 % (42-75); PLATELET COUNT 259 X10'3 (140-440); RED BLOOD COUNT 3.32 X10'6 (4.20-5.60); RED CELL DISTRIBUTION WIDTH 15.2 % (11.5-14.5); WHITE BLOOD COUNT 15.4 X10'3 (4.5-11.0)
--- NOTE | 2020-08-03 02:47 | NUR ---
pt supine for personal care and repositioning for approx 30 minutes. pt did not tolerate it. her lowest saturation was 58% on fi02 of 100%. pt now in prone position
[2020-08-03 02:52] LABS: D-DIMER 2.64 MG/L FEU (0-0.50); PARTIAL THROMBOPLASTIN TIME 36 SECONDS (22-32)
[2020-08-03] MEDS: mineral oil/petrolatum ophthal oint EACHEYE SCH ×4 (02:56→19:31)
[2020-08-03 03:02] LABS: ALANINE AMINOTRANSFERASE 42 U/L (12-78); ALBUMIN 1.8 G/DL (3.4-5.0); ALBUMIN/GLOBULIN RATIO 0.4 (1.1-1.5); ALKALINE PHOSPHATASE 187 IU/L (46-116); ANION GAP 6 (8-16); ASPARTATE AMINO TRANSFERASE 35 U/L (10-37); BILIRUBIN,TOTAL 0.4 MG/DL (0.1-1.0); BLOOD UREA NITROGEN 46 MG/DL (7-18); BUN/CREATININE RATIO 26.3 (6.6-38.0); CALCIUM 8.5 MG/DL (8.5-10.1); CHLORIDE 107 MMOL/L (99-107); CREATININE 1.75 MG/DL (0.40-0.90); GLUCOSE 223 MG/DL (70-104); PHOSPHORUS 4.3 MG/DL (2.3-4.5); POTASSIUM 4.6 MMOL/L (3.5-5.1); SODIUM 143 MMOL/L (135-145); TOTAL CARBON DIOXIDE 29.6 MMOL/L (24-32); TOTAL PROTEIN 6.2 G/DL (6.4-8.2); eGFR 29 ML/MIN
[2020-08-03 03:05] LABS: PLATELET ESTIMATE NORMAL; TOTAL CELLS COUNTED 100
[2020-08-03 03:06] LABS: ANISOCYTOSIS 1+; BURR CELLS 1+
[2020-08-03] MEDS: ipratropium/albuterol 3ml nebule NEB SCH ×6 (03:39→23:10)
[2020-08-03] MEDS: NORepinephrine 8mg/ 250ml NS 250 ML IV SCH ×3 (03:46→22:37)
[2020-08-03 03:52] LABS: ABG BASE EXCESS -2.7 mmol/L (-2.0-2.0); ABG HCO3 27.8 mmol/L (22.0-26.0); ABG OXYGEN SATURATION 92.9 % (94-97); ABG PCO2 (T) 80.7 mmHg (32.0-45.0); ABG PO2 (T) 66.1 mmHg (75.0-100.0); ALLEN'S TEST POSITIVE; FCOHb 0.3 % (0.0-3.9); FMetHb 0.1 % (0.0-1.5); FO2Hb 92.5 % (94-97); PATIENT TEMPERATURE 35.8; PEEP 15 cm H2O; RESPIRATORY RATE 26 b/min; TOTAL HEMOGLOBIN 10.9 G/dl (12.0-16.0)
[2020-08-03 04:48] LABS: C-REACTIVE PROTEIN 14.85 MG/DL (0.0-0.5)
[2020-08-03] MEDS: amiodarone/D5 360MG/200ML BAG 200 ML IV SCH ×4 (07:35→22:56)
[2020-08-03] MEDS: lactobacillus rhamnosus 10,000 MMU CELLS/CAPSULE OGT SCH ×2 (07:54→19:30)
[2020-08-03] MEDS: pantoprazole 40 MG vial IV SCH (07:54)
[2020-08-03] MEDS: methylPREDNISolone sod succ 125mg/2ml vial IV SCH ×3 (07:54→23:36)
[2020-08-03] MEDS: docusate sodium 100mg/10ml UD cup NG SCH ×2 (07:54→19:30)
[2020-08-03] MEDS: ceFAZolin/D5W- 1GM premix 50 ML IV SCH ×2 (07:54→16:18)
[2020-08-03] MEDS: cholecalciferol (vitamin D) 400 unit tablet OGT SCH (07:55)
[2020-08-03] MEDS: enoxaparin 60mg/0.6ml syringe SUBCUT SCH ×2 (07:57→19:31)
[2020-08-03] MEDS: enoxaparin 30mg/0.3ml syringe SUBCUT SCH ×2 (07:57→19:30)
[2020-08-03] MEDS: insulin regular, human U-100 3ml vial - multi-dose SQ SCH ×3 (08:00→20:21)
[2020-08-03] MEDS: budesonide 0.5mg/2ml UD nebule IH SCH (08:02)
[2020-08-03] MEDS ORDERED: vancomycin inj. 750 MG in normal saline 250ml IV soln 250 ML IV SCH (10:00)
[2020-08-03] MEDS ORDERED: normal saline 1000ml 1,000 ML IV ONE (10:05)
[2020-08-03 14:24] LABS: CLARITY,URINE CLOUDY (Clear); COLOR,URINE YELLOW (Yellow); GLUCOSE, URINE NEGATIVE (Neg); KETONES,URINE NEGATIVE (Neg); LEUKOCYTE ESTERASE ,URINE NEGATIVE (Neg); NITRITES, URINE NEGATIVE (Neg); OCCULT BLOOD,URINE LARGE (Neg); PH,URINE 5.5 (4.8-8.0); PROTEIN,URINE 100 mg/dl (Neg); UROBILINOGEN,URINE 0.2 E.U/dL (0.2-1.0)
[2020-08-03 14:26] LABS: SODIUM,URINE RANDOM < 15 MEQ/L; UA COLLECTION TYPE FOLEY CATH
[2020-08-03 14:32] LABS: COARSE GRANULAR CAST >30 /LPF (NEGATIVE); SQUAMOUS EPITHELIAL CELL,UR FEW /LPF (FEW); YEAST MANY /HPF (NEGATIVE)
[2020-08-03 14:33] LABS: BACTERIA,URINE 2+ /HPF (Neg)
[2020-08-03 15:05] LABS: UA EOSINOPHILS NO EOS /HPF
[2020-08-03] MEDS: CISatracurium besylate inj. 100 MG in normal saline 100ml IV soln 90 ML IV PRN (19:29)
[2020-08-03] MEDS: insulin glargine (Lantus) pen - multi-dose SQ SCH (20:20)
--- NOTE | 2020-08-03 21:15 | NUR ---
Informed Macho DIRECT CHILL CASTER of pt's decreased urine out put
[2020-08-03] MEDS: ceFAZolin 2gm in dextrose, iso 50 ML IV SCH (23:36)
[2020-08-04] VITALS (23 sets, daily range): BP systolic 76–132; BP diastolic 28–76
--- NOTE | 2020-08-04 01:07 | NUR ---
noted peak pressures of 49-50 RT,Macho SUPERVISOR [employer], and hot strip mill inspector informed. vital signs appear to be stable
--- NOTE | 2020-08-04 02:27 | NUR ---
attempted to place pt supine. pt desat to mid 70's on 100% fio2 in approx 5 minutes. pt placed prone and rotaion restarted and sats now 95 % on fi02 of 90
[2020-08-04] MEDS: mineral oil/petrolatum ophthal oint EACHEYE SCH ×4 (02:32→20:00)
[2020-08-04] MEDS: insulin regular, human U-100 3ml vial - multi-dose SQ SCH ×4 (02:36→21:01)
[2020-08-04] MEDS: FENTANYL-0.9 % NACL/PF 100 ML IV PRN ×8 (02:44→21:46)
[2020-08-04 02:56] LABS: BASOPHILS # (AUTO) 0.1 X10'3 (0-0.2); BASOPHILS % (AUTO) 0.3 % (0-1); EOSINOPHILS % (AUTO) 0 % (0-6); HEMATOCRIT 31.4 % (35.0-45.0); HEMOGLOBIN 9.9 g/dl (12.0-16.0); LYMPHOCYTES # (AUTO) 0.2 X10'3 (1.1-4.8); LYMPHOCYTES % (AUTO) 0.9 % (21-51); MEAN CORPUSCULAR HEMOGLOBIN 30.3 PG (27.0-31.0); MEAN CORPUSCULAR HGB CONC 31.5 g/dL (33.0-36.5); MEAN CORPUSCULAR VOLUME 96.1 FL (78-98); MEAN PLATELET VOLUME 8.6 FL (7.4-10.4); MONOCYTES # (AUTO) 0.7 X10'3 (0-0.9); MONOCYTES % (AUTO) 3.6 % (2-12); NEUTROPHILS # (AUTO) 17.7 X10'3 (1.8-7.7); NEUTROPHILS % (AUTO) 95.2 % (42-75); PLATELET COUNT 236 X10'3 (140-440); RED BLOOD COUNT 3.26 X10'6 (4.20-5.60); WHITE BLOOD COUNT 18.5 X10'3 (4.5-11.0)
[2020-08-04] MEDS: ipratropium/albuterol 3ml nebule NEB SCH ×5 (02:57→23:10)
[2020-08-04] MEDS: midazolam 100mg in NS 100ml 100 ML IV PRN ×5 (03:02→23:55)
[2020-08-04 03:13] LABS: ABG BASE EXCESS -7.7 mmol/L (-2.0-2.0); ABG HCO3 24.9 mmol/L (22.0-26.0); ABG OXYGEN SATURATION 95.7 % (94-97); ABG PCO2 (T) 96.3 mmHg (32.0-45.0); ABG PO2 (T) 81.7 mmHg (75.0-100.0); ALLEN'S TEST POSITIVE; FMetHb 0.5 % (0.0-1.5); FO2Hb 95.2 % (94-97); PATIENT TEMPERATURE 35.8; PEEP 18 cm H2O; RESPIRATORY RATE 26 b/min; TOTAL HEMOGLOBIN 11.1 G/dl (12.0-16.0)
[2020-08-04 03:20] LABS: ALANINE AMINOTRANSFERASE 39 U/L (12-78); ALBUMIN 1.8 G/DL (3.4-5.0); ALBUMIN/GLOBULIN RATIO 0.4 (1.1-1.5); ALKALINE PHOSPHATASE 221 IU/L (46-116); ANION GAP 7 (8-16); ASPARTATE AMINO TRANSFERASE 45 U/L (10-37); BILIRUBIN,TOTAL 0.3 MG/DL (0.1-1.0); BLOOD UREA NITROGEN 65 MG/DL (7-18); BUN/CREATININE RATIO 24.1 (6.6-38.0); C-REACTIVE PROTEIN 7.88 MG/DL (0.0-0.5); CALCIUM 8.5 MG/DL (8.5-10.1); CHLORIDE 109 MMOL/L (99-107); GLUCOSE 139 MG/DL (70-104); MAGNESIUM 2.9 MG/DL (1.5-2.4); PHOSPHORUS 5.8 MG/DL (2.3-4.5); POTASSIUM 5.1 MMOL/L (3.5-5.1); PREALBUMIN 24.6 MG/DL (19-36); SODIUM 144 MMOL/L (135-145); TOTAL CARBON DIOXIDE 28.1 MMOL/L (24-32); TRIGLYCERIDES 144 MG/DL (20-135); eGFR 18 ML/MIN
[2020-08-04 03:26] LABS: ACANTHOCYTES FEW; ANISOCYTOSIS 1+; PLATELET ESTIMATE NORMAL; TOTAL CELLS COUNTED 100
--- NOTE | 2020-08-04 06:30 | NUR ---
Patient in room CICU 2006. I have received report from Shea BONILLA and had the opportunity to ask questions and assume patient care.
[2020-08-04] MEDS: pantoprazole 40 MG vial IV SCH (07:14)
[2020-08-04] MEDS: methylnaltrexone br 12mg/0.6ml inj***SubQ only SQ SCH (07:15)
[2020-08-04] MEDS: docusate sodium 100mg/10ml UD cup NG SCH ×2 (07:15→20:18)
[2020-08-04] MEDS: lactobacillus rhamnosus 10,000 MMU CELLS/CAPSULE OGT SCH ×2 (07:15→20:18)
[2020-08-04] MEDS: cholecalciferol (vitamin D) 400 unit tablet OGT SCH (07:15)
[2020-08-04] MEDS: methylPREDNISolone sod succ 125mg/2ml vial IV SCH ×3 (07:15→23:48)
[2020-08-04] MEDS: ceFAZolin 2gm in dextrose, iso 50 ML IV SCH (07:15)
[2020-08-04] MEDS: enoxaparin 30mg/0.3ml syringe SUBCUT SCH (07:16)
[2020-08-04] MEDS: enoxaparin 60mg/0.6ml syringe SUBCUT SCH (07:16)
[2020-08-04] MEDS: budesonide 0.5mg/2ml UD nebule IH SCH (07:54)
--- NOTE | 2020-08-04 08:01 | NUR ---
pt does not tolerate being in supine position. unable to perform train of four and supining patient and icing face. will continue to monitor.
[2020-08-04] MEDS ORDERED: heparin 10,000 units/1 ML INJ IV PRN (09:00)
[2020-08-04] MEDS ORDERED: heparin 10,000 units/1 ML INJ IV ONE (09:00)
--- NOTE | 2020-08-04 09:00 | NUR ---
Dr. Haley aware of patient's electrolytes and kidney function. New orders received for heparin gtt, and NS at 50cc/hr.
[2020-08-04] MEDS: heparin 25,000 UNIT/250ml bag 250 ML IV SCH ×2 (09:50→23:43)
[2020-08-04] MEDS ORDERED: albumin (human) 25% 100 ML IV solution IV ONE (09:50)
[2020-08-04] MEDS ORDERED: ceFAZolin 2gm in dextrose, iso 50 ML IV SCH (09:50)
[2020-08-04] MEDS: normal saline 1000ml 1,000 ML IV SCH (11:15)
[2020-08-04] MEDS: amiodarone/D5 360MG/200ML BAG 200 ML IV SCH ×2 (11:16→20:20)
[2020-08-04] MEDS: NORepinephrine 8mg/ 250ml NS 250 ML IV SCH (11:57)
--- NOTE | 2020-08-04 12:00 | NUR ---
pt sating in the high 70s/low 80s. increased FiO2 to 95%; RT and flare breaker aware.
--- NOTE | 2020-08-04 13:00 | NUR ---
patient O2 saturation at 82%, FiO2 increased to 100% RT and desk assistant aware.
--- NOTE | 2020-08-04 14:00 | NUR ---
notified Dr. Haley patient's daughter Rosenda would like to speak with him.
--- NOTE | 2020-08-04 14:54 | NUR ---
MD aware that pt's FiO2 is 100% and sating at 82-86%
--- NOTE | 2020-08-04 16:20 | NUR ---
patient's bilateral nasal rapid rhinos changed. patient tolerated well.
--- NOTE | 2020-08-04 17:58 | NUR ---
I have reviewed and agree with all medications administered and interventions performed by [facility] Student Betty Dial Addendum: 08/04/20 at [address] Amended: Links added.
--- NOTE | 2020-08-04 18:19 | NUR ---
Patient report given, questions answered & plan of care reviewed with Sondra BONILLA.
--- NOTE | 2020-08-04 18:25 | NUR ---
Patient in room CICU 2006. I have received report from Ana BONILLA and had the opportunity to ask questions and assume patient care.
[2020-08-04] MEDS: ceFAZolin/D5W- 1GM premix 50 ML IV SCH (20:18)
--- NOTE | 2020-08-04 20:39 | NUR ---
JAZMÍN Uribe notified of PT O2 saturation trending down from low 80's to high 70's. No new orders received at this time. FiO2 remains at 100% and PEEP of 18. Will continue to monitor.
[2020-08-04] MEDS: insulin glargine (Lantus) pen - multi-dose SQ SCH (21:00)
[2020-08-04] MEDS: CISatracurium besylate inj. 100 MG in normal saline 100ml IV soln 90 ML IV PRN ×2 (21:11→21:35)
--- NOTE | 2020-08-04 21:23 | NUR ---
Charge nurse notified d/t PT's daughter Rosenda calling and wishing to speak to the provider covering for this evening because she would like for the dosage of the Steroid her mother is on to be increased. The daughter was informed that nurses are not able to change medication orders without the MD giving such order and that the message could be relayed that she is requesting to have the Dr call her. PT's Primary RN answered all of the daughters questions to the best of her ability but the daughter was requesting the On-Call coverage's number or to be transferred to their personal number, the daughter was informed that nursing is not at liberty to give out the providers personal phone numbers. Charge nurse made aware of the situation and the call was transferred in attempts to calm the daughter.
[2020-08-04] MEDS ORDERED: VANCOMYCIN LEVEL IV ONE (21:30)
[2020-08-05] VITALS (24 sets, daily range): BP systolic 92–129; BP diastolic 49–74
--- NOTE | 2020-08-05 | NUR ---
PT's daughter Rosenda has continued to call a multitude of timed thus far in the shift. She has spoken to the Primary RN as well as CRN. All of her questions have been answered to the best of our ability and she was informed yet again that the provider has been notified of her want to receive a call. Will again pass onto following shift she continues to request the provider call her. Will continue to monitor.
[2020-08-05] MEDS: CISatracurium besylate inj. 100 MG in normal saline 100ml IV soln 90 ML IV PRN ×9 (00:27→23:29)
[2020-08-05] MEDS: FENTANYL-0.9 % NACL/PF 100 ML IV PRN ×8 (00:59→23:39)
[2020-08-05] MEDS: NORepinephrine 8mg/ 250ml NS 250 ML IV SCH ×4 (01:49→23:39)
[2020-08-05] MEDS: mineral oil/petrolatum ophthal oint EACHEYE SCH ×4 (02:00→19:54)
[2020-08-05] MEDS: amiodarone/D5 360MG/200ML BAG 200 ML IV SCH ×4 (02:03→20:15)
[2020-08-05] MEDS: ipratropium/albuterol 3ml nebule NEB SCH ×6 (02:36→22:05)
[2020-08-05 02:54] LABS: ABG BASE EXCESS -10.4 mmol/L (-2.0-2.0); ABG HCO3 22.8 mmol/L (22.0-26.0); ABG OXYGEN SATURATION 63.2 % (94-97); ABG PCO2 (T) 114.5 mmHg (32.0-45.0); ABG PO2 (T) 35.8 mmHg (75.0-100.0); ALLEN'S TEST POSITIVE; FMetHb 0.4 % (0.0-1.5); FO2Hb 62.3 % (94-97); PATIENT TEMPERATURE 37.3; PEEP 18 cm H2O; RESPIRATORY RATE 26 b/min
[2020-08-05 03:12] LABS: HEMATOCRIT 25.4 % (35.0-45.0); HEMOGLOBIN 7.8 g/dl (12.0-16.0); LYMPHOCYTES # (AUTO) 0.3 X10'3 (1.1-4.8); LYMPHOCYTES % (AUTO) 1.2 % (21-51); MEAN CORPUSCULAR HGB CONC 30.8 g/dL (33.0-36.5)
[2020-08-05] MEDS: insulin regular, human U-100 3ml vial - multi-dose SQ SCH ×4 (03:12→20:28)
[2020-08-05 03:14] LABS: BASOPHILS # (AUTO) 0.1 X10'3 (0-0.2); BASOPHILS % (AUTO) 0.3 % (0-1); EOSINOPHILS % (AUTO) 0.1 % (0-6); MEAN CORPUSCULAR VOLUME 97.7 FL (78-98); MEAN PLATELET VOLUME 8.9 FL (7.4-10.4); MONOCYTES # (AUTO) 0.6 X10'3 (0-0.9); MONOCYTES % (AUTO) 2.8 % (2-12); NEUTROPHILS # (AUTO) 20.9 X10'3 (1.8-7.7); NEUTROPHILS % (AUTO) 95.6 % (42-75); PLATELET COUNT 192 X10'3 (140-440); RED CELL DISTRIBUTION WIDTH 16.6 % (11.5-14.5); WHITE BLOOD COUNT 21.8 X10'3 (4.5-11.0)
[2020-08-05 03:25] LABS: ALANINE AMINOTRANSFERASE 122 U/L (12-78); ALBUMIN 2.2 G/DL (3.4-5.0); ALBUMIN/GLOBULIN RATIO 0.7 (1.1-1.5); ALKALINE PHOSPHATASE 561 IU/L (46-116); ANION GAP 9 (8-16); ASPARTATE AMINO TRANSFERASE 333 U/L (10-37); BILIRUBIN,TOTAL 0.5 MG/DL (0.1-1.0); BLOOD UREA NITROGEN 95 MG/DL (7-18); BUN/CREATININE RATIO 23.2 (6.6-38.0); C-REACTIVE PROTEIN 3.88 MG/DL (0.0-0.5); CALCIUM 7.8 MG/DL (8.5-10.1); CHLORIDE 108 MMOL/L (99-107); CREATININE 4.09 MG/DL (0.40-0.90); GLUCOSE 192 MG/DL (70-104); MAGNESIUM 2.9 MG/DL (1.5-2.4); PHOSPHORUS 7.3 MG/DL (2.3-4.5); SODIUM 142 MMOL/L (135-145); TOTAL CARBON DIOXIDE 25.3 MMOL/L (24-32); TOTAL PROTEIN 5.3 G/DL (6.4-8.2); eGFR 11 ML/MIN
[2020-08-05 03:38] LABS: D-DIMER 2.19 MG/L FEU (0-0.50)
[2020-08-05 03:42] LABS: ACANTHOCYTES FEW; ANISOCYTOSIS 1+; PLATELET ESTIMATE NORMAL; TOTAL CELLS COUNTED 100
[2020-08-05] MEDS ORDERED: sodium polystyrene sulfonate 15gm/60ml oral suspension PO ONE (03:45)
--- NOTE | 2020-08-05 03:45 | NUR ---
JAZMÍN Uribe notified in regards to receiving multiple critical values. Please refer PT chart for such values. Orders received for 30mg Kayexalate. Will administer as soon as it becomes available from pharmacy and continue to monitor.
[2020-08-05] MEDS: normal saline 1000ml 1,000 ML IV SCH (06:03)
[2020-08-05] MEDS: midazolam 100mg in NS 100ml 100 ML IV PRN ×4 (06:06→22:27)
--- NOTE | 2020-08-05 06:31 | NUR ---
Patient in room CICU 2006. I have received report from Sondra BONILLA and had the opportunity to ask questions and assume patient care.
--- NOTE | 2020-08-05 06:35 | NUR ---
Problems reprioritized. Patient report given, questions answered & plan of care reviewed with Ana BONILLA.
[2020-08-05] MEDS: cholecalciferol (vitamin D) 400 unit tablet OGT SCH (07:11)
[2020-08-05] MEDS: docusate sodium 100mg/10ml UD cup NG SCH ×2 (07:11→19:56)
[2020-08-05] MEDS: ceFAZolin/D5W- 1GM premix 50 ML IV SCH ×2 (07:11→19:55)
[2020-08-05] MEDS: methylPREDNISolone sod succ 125mg/2ml vial IV SCH ×3 (07:11→19:56)
[2020-08-05] MEDS: lactobacillus rhamnosus 10,000 MMU CELLS/CAPSULE OGT SCH ×2 (07:11→19:56)
[2020-08-05] MEDS: pantoprazole 40 MG vial IV SCH (07:11)
[2020-08-05] MEDS: budesonide 0.5mg/2ml UD nebule IH SCH (07:35)
--- NOTE | 2020-08-05 08:25 | NUR ---
notified donor network about patient. Reference # [id number] personnel director Akosua Almaraz requested H&P that stated patient has been diagnosed with COVID since there is no test on file.
--- NOTE | 2020-08-05 09:30 | NUR ---
MD aware pt received keyexalate during NOC shift and that pt is sating 70s on 100% FiO2. Patient's abnormal lab values have been communicated as well as no urine output. Will continue to monitor.
[2020-08-05] MEDS ORDERED: methylPREDNISolone sod succ 125mg/2ml vial IV SCH (09:45)
--- NOTE | 2020-08-05 11:00 | NUR ---
MD spoke with family about patient's condition. Patient currently sating in the 60s on 100% FiO2; will continue to monitor.
[2020-08-05] MEDS ORDERED: methylPREDNISolone sod succ 125mg/2ml vial IV ONE (11:10)
[2020-08-05] MEDS: heparin 25,000 UNIT/250ml bag 250 ML IV SCH (14:26)
--- NOTE | 2020-08-05 18:20 | NUR ---
Patient in room CICU 2006. I have received report from IRENE Perez and had the opportunity to ask questions and assume patient care.
--- NOTE | 2020-08-05 19:00 | NUR ---
Patients daughter called for an update. Update given, no change since she was here earlier.
--- NOTE | 2020-08-05 20:00 | NUR ---
Edgar Uribe GENERAL MAGISTRATE at bedside, aware of currently vital signs SpO2 in the 40-50's%. No new orders. Addendum: 08/06/20 at 0123 by Elva Cho RN Late entry: Provider also made aware of no repeat chemistry since high potassium was treated this morning. Per provider re draw at morning labs.
[2020-08-05] MEDS: insulin glargine (Lantus) pen - multi-dose SQ SCH (20:30)
[2020-08-06] VITALS: BP 100/43
--- NOTE | 2020-08-06 00:31 | NUR ---
Edgar Uribe NP made aware of patients oxygen saturation in the 27-30's consistently. No new orders at this time.
--- NOTE | 2020-08-06 00:57 | NUR ---
Edgar Uribe NP aware of patients ST depression and Oxygen saturation of 19%. No new orders at this time.
[2020-08-06 01:00] VITALS: BP 119/60
--- NOTE | 2020-08-06 01:30 | NUR ---
Patient with bradycardia and period of ventricular rhythm in the 30's. SpO2 7%. Edgar Uribe NP aware. No new orders.
[2020-08-06] MEDS: normal saline 1000ml 1,000 ML IV SCH (01:50)
[2020-08-06 02:00] VITALS: BP 100/44
[2020-08-06] MEDS: mineral oil/petrolatum ophthal oint EACHEYE SCH (02:00)
[2020-08-06] MEDS: methylPREDNISolone sod succ 125mg/2ml vial IV SCH (02:10)
[2020-08-06] MEDS: amiodarone/D5 360MG/200ML BAG 200 ML IV SCH (02:19)
[2020-08-06] MEDS: insulin regular, human U-100 3ml vial - multi-dose SQ SCH (02:21)
[2020-08-06] MEDS: CISatracurium besylate inj. 100 MG in normal saline 100ml IV soln 90 ML IV PRN (02:48)
[2020-08-06] MEDS: NORepinephrine 8mg/ 250ml NS 250 ML IV SCH (02:50)
[2020-08-06 03:00] VITALS: BP 96/57
[2020-08-06] MEDS: ipratropium/albuterol 3ml nebule NEB SCH (03:18)
[2020-08-06 03:45] VITALS: BP 49/22
--- NOTE | 2020-08-06 03:51 | NUR ---
RN IS TO DOCUMENT YES TO ALL APPLICABLE AREAS Pronouncement of : 1. Time Physician Notified: [id number] 2. Date of :08/06/2020 3. Time of : 350 4. DNR/Withdraw life support documented: yes 5. Monitor strip has been placed on chart: yes 6. Assessment process is of one-minute duration and includes following criteria: a) Patient is unresponsive to all stimuli: yes b) Pupils fixed and non-reactive: yes c) Auscultation of precordium reveals absence of heart tones: yes d) Auscultation of lungs reveals absence of breath sounds: yes e) Absence of blood pressure / all vital signs: yes f) QRS complexes are not present on monitor / EKG strip: yes g) Pacer spikes without capture: not applicable 4. Comments:
--- NOTE | 2020-08-06 04:00 | NUR ---
Patients Sj notified of time of . He would like her to go to [facility] in [facility].
--- NOTE | 2020-08-06 04:20 | NUR ---
[facility] notified.
--- NOTE | 2020-08-06 04:54 | NUR ---
All patient belongings: cell phone, metallurgical technician, oils, cards, pictures and blankets placed into patient belonging bags to be sent with patient to [facility].
[2020-08-06] MEDS: heparin 25,000 UNIT/250ml bag 250 ML IV SCH (05:09)
--- NOTE | 2020-08-06 05:14 | NUR ---
[facility] to notified of time of . Spoke with Shawna, she will have the tissue team give a return call.
== END 2020-08-06 06:45 | disposition expired | DRG 870 ==
LOC: ER 17:28 → ED HOLD 07-19 00:29 → CICU 2S 07-19 12:03
PROVIDERS: ADMIT Internal Medicine Critical Care Medicine; ATTEND Internal Medicine Critical Care Medicine
PROC: B32T1ZZ Computerized Tomography (CT Scan) of Left Pulmonary Artery using Low Osmolar Contrast (ICD-10-PCS; 2020-07-18)
PROC: B3201ZZ Computerized Tomography (CT Scan) of Thoracic Aorta using Low Osmolar Contrast (ICD-10-PCS; 2020-07-18)
PROC: B32S1ZZ Computerized Tomography (CT Scan) of Right Pulmonary Artery using Low Osmolar Contrast (ICD-10-PCS; 2020-07-18)
PROC: 5A09557 Assistance with Respiratory Ventilation, Greater than 96 Consecutive Hours, Continuous Positive Airway Pressure (ICD-10-PCS; 2020-07-19)
PROC: 02HV33Z Insertion of Infusion Device into Superior Vena Cava, Percutaneous Approach (ICD-10-PCS; 2020-07-19)
PROC: B548ZZA Ultrasonography of Superior Vena Cava, Guidance (ICD-10-PCS; 2020-07-19)
PROC: 5A1955Z Respiratory Ventilation, Greater than 96 Consecutive Hours (ICD-10-PCS; principal; 2020-07-31)
PROC: 0BH17EZ Insertion of Endotracheal Airway into Trachea, Via Natural or Artificial Opening (ICD-10-PCS; 2020-07-31)
PROC: 2Y41X5Z Packing of Nasal Region using Packing Material (ICD-10-PCS; 2020-08-01)
DX: A41.01 Sepsis due to Methicillin susceptible Staphylococcus aureus (principal); U07.1 COVID-19; J96.01 Acute respiratory failure with hypoxia; J18.9 Pneumonia, unspecified organism; N39.0 Urinary tract infection, site not specified; N17.9 Acute kidney failure, unspecified; E66.01 Morbid (severe) obesity due to excess calories; R04.0 Epistaxis; R58 Hemorrhage, not elsewhere classified; Z68.36 Body mass index [BMI] 36.0-36.9, adult; Z79.899 Other long term (current) drug therapy; Z66 Do not resuscitate
CPT/HCPCS: 36415; 36573; 36600; 71045; 71275; 80053; 80202; 81001; 82570; 82803; 82948; 83036; 83605; 83615; 83735; 83880; 84100; 84132; 84134; 84145; 84300; 84478; 85007; 85018; 85025; 85379; 85384; 85610; 85730; 86140; 86885; 86900; 86901; 87040; 87070; 87077; 87081; 87186; 87207; 93005; 94002; 94003; 94640; 94660; 94760; 94799; 96365; 96375; 99285; C9113; G0378; J0153; J0171; J0456; J0461; J0690; J0696; J1100; J1644; J1650; J1815; J1940; J2060; J2212; J2270; J2405; J2930; J3010; J3370; J3480; J7030; J7626; P9045; P9047; Q9967